=== PATIENT | female | born 1955 | race Caucasian/White ===

== ENCOUNTER → 2016-10-25 13:01 | Outpatient (CLI) | payer MEDICARE ==
[2016-02-11 12:45] VITALS: BMI 46.3
[~2016-10-25 13:01] MED LIST: ACETAMINOPHEN500 M1 PO; ADVAIR HFA [SP]12 GM INH; AMBIEN10 MG PO; ANTIBIOTIC; ATIVAN0.5 MG PO; BOUDREAUXS113 GM TP; BRILINTA90 MG PO; CARAFATE1 G/10 ML PO; CLEOCIN HCL300 MG PO; COMBIVENT INH14.7 GM INH; COMBIVENT RESPIM4 GM INH; COUMADIN5 MG PO; DEPADE50 MG PO; DIFLUCAN100 MG PO; DILAUDID 012 MG/30 M IV; DILAUDID4 MG PO; DOLOPHINE HCL10 MG PO; DULCOLAX10 MG/SUPP RC; ELIQUIS5 MG PO; JUVEN PO; LEXAPRO10 MG PO; METHADOSE10 MG; MICRO-K10 MEQ PO; MIRALAX17 GM PO; NARCAN INJ0.4 MG/ML IV; NEURONTIN 300300 MG PO; NORCO 10/325 TA1 TA1 PO; NYSTATIN60 GM TP; ONDANSETRON4 MG/2 M3 IV; OXYCODONE HCL5 MG PO; OXYCONTIN10 MG PO; OXYCONTIN30 MG PO; PERCOCET 10/3251 TA1 PO; PROTEIN LIQUID30 ML PO; PROTONIX I40 MG/VIAL PO; ROXICODONE5 MG PO; SALINE FLUSH10 ML IJ; SENOKOT-S TABLE1 TAB PO; SODIUM CL 0.41000 ML IV; SOMA350 MG PO; SYMBICORT 16010.2 GM INH; SYMBICORT 80-10.2 GM INH; TEFLARO600 MG IV; TORADOL30 MG/ML IM; XARELTO20 MG PO; ZANAFLEX6 MG PO; [UNRECOGNIZED DRUG - OTHER] PO
== END | disposition home or self-care (01) ==
LOC: D.US 10-18 13:00
DX: I82.91 Chronic embolism and thrombosis of unspecified vein (principal); R60.0 Localized edema

== ENCOUNTER 2017-02-01 10:49 | Outpatient (CLI) | payer MEDICARE ==
[~2017-02-01] VITALS: Ht 170.2 cm; Wt 131.4 kg
--- NOTE | ~2017-02-01 | OP ---
PATIENT NAME: NIKA GUZMAN MEDICAL RECORD: [id number] :55 LOCATION:D.CAT ADMISSION DATE: SURGEON: ERICKA OROPEZA MD DATE OF OPERATION: 02/01/2017 PROCEDURES: Left heart catheterization, selective coronary angiography, right radial approach. CATHETERS: A 5-Palau[place] sheath, [place] catheter. The procedure was well tolerated and the patient was returned to the ravi. Sheath removed and TR band was placed. FINDINGS: Left ventriculography in 30-degree CASTILLO view: Normal wall motion, normal systolic function. CORONARY ANATOMY: LEFT MAIN: The left main is free of disease. LAD: Free of disease, the area of previous stenting has no more than 20% restenosis. CIRCUMFLEX: Anomalous circ, large vessel, free of disease. RIGHT CORONARY ARTERY: Part of a co-dominant right system and is free of disease. IMPRESSION: Minimal in-stent restenosis. No evidence of progression of [place] disease, noncardiac cause of symptomology. TRANSINT:[id number] Voice Confirmation ID: [id number] DOCUMENT ID: [id number] ERICKA OROPEZA MD CC: [id number] DICTATION DATE: 02/01/17 1418 PACKER INSPECTOR: 02/02/17 0010 DEP CLI 02/01/17 [facility] [address] [id number]
--- NOTE | ~2017-02-01 | HEMODYNAMI ---
PATIENT:NIKA GUZMAN MEDICAL RECORD: [id number] : 55 LOCATION:[facility] ADMISSION DATE: 02/01/17 Generatedon:02/01/201714:07 Patient name: NIKA GUZMAN Patient #: [id number] SSN: : Date of study: 02/01/2017 Page: Of Hemodynamic Procedure Report Patient Data Patient Demographics Procedure consent was obtained First Name: NIKA Gender: Female Last Name: MEGAN : 1955 [facility] Initial: VINAY Age: 61 year(s) Patient #: [id number] Race: Additional ID: [id number] Contact details [address]: [address] [place] [address] State: [place] City: [place] Zip code: [address] Past Medical History Allergies Allergen Reaction Date Comments Reported Penicillins 06/04/2015 Other allergy 02/01/2017 n Admission Admission Data Admission Date: 02/01/2017 Admission Time: 10:49 Lab Results Lab Result Date: 02/01/2017 Lab Result Time: 11:20 Biochemistry Name Units Result Min Max BUN mg/dl 11 --(-*--)-- 7 18 Creatinine mg/dl 0.7 --(*---)-- 0.6 1.3 CBC Name Units Result Min Max Hematocrit % 41.8 -*(----)-- 42 54 Hemoglobin g/dl 13.3 -*(----)-- 13.5 17.5 Procedure Procedure Types Cath Procedure Diagnostic Procedure LHC LHC w/Coronaries Miscellaneous Procedures Moderate Sedation up to 30 minutes Procedure Description Procedure Date Procedure Date: 02/01/2017 Procedure Start Time: 13:47 Procedure End Time: 14:04 Procedure Staff Name Function Jesus Sorensen MD Performing Physician Isabelle Mendez RT Scrub Rancho Cuevas RN Nurse Andrea Tony RT Monitor Procedure Data Cath Procedure Fluoroscopy Diagnostic fluoroscopy Total fluoroscopy Time: 4.9 time: 4.9 min min Diagnostic fluoroscopy Total fluoroscopy dose: dose: 431.45 mGy 431.45 mGy Contrast Material Contrast Material Type Amount (ml) Isovue 300 89 Entry Location Entry Primary Successful Side Size Upsize Upsize Entry Closure Mendez ccessful Closure Location (Fr) 1 (Fr) 2 (Fr) Remarks Device Remarks Radial Right 6 Fr Mechanical artery Short Compression Estimated blood loss: 5 ml Diagnostic catheters Device Type Used For End Catheter Placement Medtronic Dexterity 5Fr Procedure TRAP 4.0 catheter (NO CHARGE) Medtronic Dexterity 5Fr Procedure TRAP 4.5 catheter (NO CHARGE) Procedure Complications No complications Procedure Medications Medication Administration Route Dosage Oxygen NC 2 l/min Heparin Flush Bag added to field 2 bags (1000units/500ml NS) 0.9% NaCl I.V. 100 ml/hr Radial Cocktail added to field 1 syringe (Verapomil 2mg/Nitro 400mcg/Heparin 1500units) Fentanyl I.V. 100 mcg Versed I.V. 2 mg Fentanyl I.V. 100 mcg Versed I.V. 2 mg Radial Cocktail I.A. 1 syringe (Verapomil 2mg/Nitro 400mcg/Heparin 1500units) Fentanyl I.V. 100 mcg Versed I.V. 2 mg Hemodynamics Rest HGB: 13.3 (g/dl) Heart Rate: 68 (bpm) Pressure Samples Time Site Value (mmHg) Purpose Heart Use Rate(bpm) 13:56 LV 112/39,36 Snapshot 87 13:57 LV 108/36,33 Snapshot 85 Gradients Valve Time Site Site Mean SEP/DFP Peak To Heart Use 1 2 (mmHg) (sec/min) Peak Rate (mmHg) (bpm) Aortic 13:57 LV AO 64 Snapshots Pre Cath Intra NCS Post Cath Vital Signs Time Heart Resp SPO2 NIBP (mmHg) Rhythm Pain Sedation Rate (ipm) (%) Status Level (bpm) 13:34:06 66 18 97 133/82(99) NSR 0 (11) 10(A) , No pain 13:38:37 70 18 100 129/81(96) NSR 0 (11) 10(A) , No pain 13:43:07 66 19 97 127/72(99) NSR 0 (11) 10(A) , No pain 13:47:33 67 18 95 122/79(104) NSR 0 (11) 10(A) , No pain 13:52:02 69 17 96 121/70(91) NSR 0 (11) 9(A) , No pain 13:56:14 50 19 95 126/95(114) NSR 0 (11) 9(A) , No pain 14:00:44 67 20 94 117/69(92) NSR 0 (11) 9(A) , No pain 14:05:29 64 18 95 122/71(99) NSR 0 (11) 9(A) , No pain Medications Time Medication Route Dose Verified Delivered Reason Notes Effectiveness by by 13:34:45 Oxygen NC 2 l/min Rancho Vickers Per Mason Cuevas RN physician RN 13:34:53 Heparin Flush added 2 bags Rancho Vickers used for Bag to Mason Cuevas RN procedure (1000units/500ml field STRATTON NS) 13:35:05 0.9% NaCl I.V. 100 [place] Per ml/hr Mason Cuevas RN physician RN 13:35:14 Radial Cocktail added 1 Rancho Vickers used for (Verapomil to syringe Mason Cuevas RN procedure 2mg/Nitro field STRATTON 400mcg/Heparin 1500units) 13:46:36 Fentanyl I.V. 100 mcg Rancho Vickers for sedation Mason Cuevas RN RN 13:46:43 Versed I.V. 2 mg Rancho Vickers for sedation Mason Cuevas RN RN 13:49:45 Fentanyl I.V. 100 mcg Rancho [place]ty for sedation Mason Cuevas RN RN 13:49:57 Versed I.V. 2 mg Rancho Vickers for sedation Mason Cuevas RN RN 13:50:13 Radial Cocktail I.A. 1 Rancho Lee for (Verapomil syringe Mason Chapa 2mg/Nitro CHAYITO MORRIS 400mcg/Heparin 1500units) 13:51:38 Fentanyl I.V. 100 mcg Rancho Lee for sedation Mason Sorensen RN, MD 13:51:45 Versed I.V. 2 mg Rancho Graciaory for sedation Mason Sorensen RN, MD Procedure Log Time Note 13:20:19 Rancho Cuevas RN sent for patient. Start room use. 13:20:19 Time tracking: Regular hours 13:20:23 Plan of Care:Hemodynamics will remain stable., Cardiac rhythm will remain stable., Comfort level will be maintained., Respiratory function will remain adequate., Patient/ family verbilizes understanding of procedure., Procedure tolerated without complication., Recovers from procedure without complications.. 13:32:38 Vital chart was started 13:34:45 Oxygen 2 l/min NC was administered by Rancho Cuevas RN; Per physician; 13:34:53 Heparin Flush Bag (1000units/500ml NS) 2 bags added to field was administered by Rancho Cuevas RN; used for procedure; 13:35:05 0.9% NaCl 100 ml/hr I.V. was administered by Rancho Cuevas RN; Per physician; 13:35:14 Radial Cocktail (Verapomil 2mg/Nitro 400mcg/Heparin 1500units) 1 syringe added to field was administered by Rancho Cuevas RN; used for procedure; 13:40:20 Patient received from Pre/Post Procedure Room to CCL 3 Alert and oriented. Tansferred to table in Supine position. 13:40:21 Warm blankets applied, and maria del rosario hugger turned on for patient comfort. 13:40:23 Correct patient and procedure confirmed by team. 13:40:25 Signed procedure consent form obtained from patient. 13:40:44 Baseline sample Acquired. 13:40:48 Rhythm: sinus rhythm 13:40:49 Full Disclosure recording started 13:41:13 H&P Date Dictated: 01/12/2017 Within 30 days and on chart., H&P Addendum completed by physician on day of procedure. (MUST COMPLETE FOR ALL OUTPATIENTS). 13:41:14 Pre-procedure instructions explained to patient. 13:41:15 Pre-op teaching completed and patient verbalized understanding. 13:41:19 Family in waiting room. 13:41:20 Patient NPO since Midnight. 13:41:33 Patient allergic to Other allergypcn 13:41:36 Is the patient allergic to Iodine/contrast media? No. 13:41:38 Is patient on blood thinner?Yes 13:42:11 Previous problem with sedation/anesthesia? No ? 13:42:28 Snore? Yes 13:42:29 Sleep apnea? Yes 13:42:30 Deviated septum? No 13:42:31 Opens mouth fully? Yes 13:42:31 Sticks out tongue? Yes 13:42:35 Airway obstruction? Yes copd 13:42:37 Dentures? No ? 13:42:41 Modified Gaudencio's test Radial < 7 seconds 13:42:43 Patient pain scale 0/10 ?. 13:42:49 IV patent on arrival in left wrist with 0.9% NaCl at [facility]. 13:45:12 Lab Result : Creatinine 0.7 mg/dl 13:45:12 Lab Result : BUN 11 mg/dl 13:45:12 Lab Result : Hemoglobin 13.3 g/dl 13:45:12 Lab Result : Hematocrit 41.8 % 13:45:14 Lab results completed and on chart. 13:45:18 Right Radial & Right Groin area was prepped with chlora-prep and draped in sterile fashion 13:45:19 Alarms reviewed by R. N. 13:45:19 Sharps counted by scrub and verified by R.N. 13:45:22 Use device set Radial Dx 13:45:23 MBrace Wrist Support opened to sterile field. 13:45:24 Tegaderm 4 x 4 opened to sterile field. 13:45:26 Acist Hand Control opened to sterile field. 13:45:26 Acist Manifold opened to sterile field. 13:45:27 Acist Syringe opened to sterile field. 13:45:28 Medline Cath Pack opened to sterile field. 13:45:28 Bag Decanter opened to sterile field. 13:45:29 Terumo 6Fr Slender Glidesheath opened to sterile field. 13:45:29 St Bret 260cm J .035 wire opened to sterile field. 13:45:38 Physician arrived 13:45:38 --------ALL STOP TIME OUT------ 13:45:38 Final Timeout: patient, procedure, and site verified with staff and physician. All members of the team are in agreement. 13:45:40 Right Radial & Right Groin site verified by team. 13:45:42 Physical assessment completed. ASA score P 2 - A patient with mild systemic disease as per Jesus Sorensen MD. 13:45:45 Sedation plan: IV Moderate Sedation Versed, Fentanyl 13:46:36 Fentanyl 100 mcg I.V. was administered by Rancho Cuevas RN; for sedation; 13:46:43 Versed 2 mg I.V. was administered by Rancho Cuevas RN; for sedation; 13:47:37 Procedure started. 13:47:42 Local anesthetic to right radial artery with Lidocaine 2% by Jesus Sorensen MD.INITIAL ACCESS ONLY 13:47:43 A 6 Fr Short sheath was inserted into the Right Radial artery 13:48:56 Zero performed for pressure channel P1 13:49:45 Fentanyl 100 mcg I.V. was administered by Rancho Cuevas RN; for sedation; 13:49:57 Versed 2 mg I.V. was administered by Rancho Cuevas RN; for sedation; 13:50:13 Radial Cocktail (Verapomil 2mg/Nitro 400mcg/Heparin 1500units) 1 syringe I.A. was administered by Jesus Sorensen MD; for vasodilation; 13:50:20 A Medtronic Dexterity 5Fr TRAP 4.0 catheter (NO CHARGE) was advanced over the wire and used for Procedure. 13:51:27 LCA angiography performed. 13:51:38 Fentanyl 100 mcg I.V. was administered by Jesus Sorensen MD; for sedation; 13:51:45 Versed 2 mg I.V. was administered by Jesus Sorensen MD; for sedation; 13:53:25 Catheter removed. 13:53:43 Catheter exchanged over wire. 13:54:19 A Medtronic Dexterity 5Fr TRAP 4.5 catheter (NO CHARGE) was advanced over the wire and used for Procedure. 13:55:22 LCA angiography performed. 13:57:19 LV gram done using CASTILLO 13:57:23 Injector settings: Ml/sec: 5, Volume: 15, 13:57:40 EF : 50 % 13:58:30 Catheter removed. 13:59:06 Medtronic Launcher 6Fr HS I guide catheter opened to sterile field. 13:59:23 6 Fr HSI guide catheter was inserted over the wire 14:00:08 RCA angiography performed. 14:00:59 Terumo TR Band Large opened to sterile field. 14:01:05 Catheter removed. 14:01:33 Sheath removed intact; hemostasis achieved with Mechanical Compression to the Right Radial artery. 14:02:11 Procedure ended.(Physican Out) 14:02:33 Fluoroscopy time 04.90 minutes. 14:02:40 Fluoroscopy dose: 431.45 mGy 14:02:40 Flurop Dose total: 431.45 14:02:44 Contrast amount:Isovue 300 89ml. 14:02:45 Sharps counted by scrub and verified by R.N. 14:02:48 TR band inflated with 12cc of air. 14:02:49 Insertion/operative site no bleeding no hematoma. 14:02:56 Post Procedure Pulses reassessed and unchanged 14:02:58 Post-procedure physical assessment completed. ASA score P 2 - A patient with mild systemic disease as per Jesus Sorensen MD. 14:03:00 Post procedure rhythm: unchanged. 14:03:04 Estimated blood loss: 5 ml 14:03:06 Post procedure instruction explained to patient.Patient verbalizes understanding. 14:03:06 Patient needs reinforcement of post procedure teaching. 14:03:36 Procedure type changed to Cath procedure, Diagnostic procedure, LHC, LHC w/Coronaries, Miscellaneous Procedures, Moderate Sedation up to 30 minutes 14:03:52 Procedure and supply charges have been captured, reviewed, submitted and are correct. 14:03:54 Procedure Complication : No complications 14:03:56 Vital chart was stopped 14:03:56 See physician's report for complete and final results. 14:03:58 Report given to Pre/Post Procedure Room. 14:04:00 Patient transfered to Pre/Post Procedure Room with Stretcher. 14:04:01 Procedure ended. 14:04:01 Full Disclosure recording stopped 14:04:11 End room use (Document Last) Device Usage Item Name Manufacture Quantity Catalog Hospital Part Current Minimal Lot# / Number Charge Number Stock Stock Serial# Code MBrace [facility] 1 140-0250-00 [id number] 53047 143722 5 Wrist Vascular Support Dynamics Tegaderm 4 3M 1 [id number] 666946 388071 5 x 4 Acist Hand Acist 1 91176 556635 189216 841685 5 Control Medical Systems Inc Acist Acist 1 14747 987528 548585 148091 5 Manifold Medical Systems Inc Acist Acist 1 02367 588923 207275 462955 20 Syringe Medical Systems Inc Medline Cardinal 1 [id number] 152192 83271 397938 5 Cath Pack Health Bag Microtek 1 2001S 069436 47369 166801 5 Decanter Medical Inc. Terumo 6Fr Terumo 1 [id number] 728300 910530 930627 [address] St Bret 1 429165 542217 273403 716168 30 260cm J .035 wire Medtronic Medtronic 1 [id number] 939351 131260 5 Dexterity 5Fr TRAP 4.0 catheter (NO CHARGE) Medtronic Medtronic 1 [id number] 149969 770322 5 Dexterity 5Fr TRAP 4.5 catheter (NO CHARGE) Medtronic Medtronic 1 [id number] 079806 68380 905659 1 Launcher 6Fr HS I guide catheter Terumo TR Terumo 1 [id number] 871892 686748 431561 40 Band Large Signature Audit Vidalia Stage Time Signature Unsigned Intra-Procedure 02/01/2017 Andrea Tony 2:07:22 PM RT(R) Signatures Monitor : Andrea Tony RT Signature : Date : Time : [address] [address]
[2017-02-01] MEDS ORDERED: NITROQUICK0.4 MG SL (11:12)
[2017-02-01] MEDS ORDERED: ISOSORBIDE MONO30 M1 PO (11:13)
[2017-02-01] MEDS ORDERED: COMBIVENT RESPIM4 GM INH (11:13)
[2017-02-01] MEDS ORDERED: PEPCID40 MG PO (11:13)
[2017-02-01] MEDS ORDERED: EFFEXOR XR37.5 MG PO (11:14)
[2017-02-01 11:15] VITALS: BP 134/73; Ht 170.2 cm; Wt 131.4 kg
[2017-02-01 11:32] LABS: BASOPHILS 0.6 % (0-2); EOSINOPHILS 2.8 % (0-7); HEMATOCRIT 41.8 % (36.0-48.0); HEMOGLOBIN 13.3 g/dL (12-16); IMMATURE GRANULOCYTES 0.3 % (0-5); LYMPHOCYTES 21.8 % (15-50); MCH 28.2 pg (26.0-34.0); MCHC 31.8 g/dL (31.0-37.0); MCV 88.6 fL (80.0-100.0); MEAN PLATELET VOLUME 10.7 fL (7.4-10.4); MONOCYTES 6.3 % (2-11); NEUTROPHILS 68.2 % (40-80); PLATELET COUNT 160 10x3/uL (130-400); RBC 4.72 10x6/uL (4.00-5.40); RDW 14.7 % (11.5-14.5); WBC 6.9 10x3/uL (4.8-10.8)
[2017-02-01 12:02] LABS: CALC OSMOLALITY 276 mosm/kg (275-300); CALCIUM 8.8 mg/dL (8.5-10.1); CARBON DIOXIDE 31.3 mmol/L (21.0-32.0); CHLORIDE - SERUM 104 mmol/L (98-107); CREATININE - SERUM 0.7 mg/dL (0.6-1.3); GLUCOSE 95 mg/dL (74-106); POTASSIUM - SERUM 4.1 mmol/L (3.5-5.1); SODIUM 139 mmol/L (136-145); UREA NITROGEN 11 mg/dL (7-18); eGFR NON AFRICAN AMERICAN 90 mL/min (90-120)
--- NOTE | 2017-02-01 14:15 | NUR ---
1415 TR BAND TO R/WRIST CDI NO BLEEDING NO HEMATOMA NOTED. VSS WITH CHEST PAIN DENIED. 1430 NO DISTRESS NOTED SANDWICH AND SODA TO BEDSIDE
--- NOTE | 2017-02-01 15:43 | NUR ---
RESTING QUIETLY WITH EYES CLOSED FAMILY AT SIDE VSS WITH CHEST PAIN DENIED
--- NOTE | 2017-02-01 16:05 | NUR ---
PIV REMOVED WITH DRESSING APPLIED 2 CC AIR REMOVED FROM TR BAND WITH NO BLEEDING NO HEMATOMA NOTED PATIENT UP TO GET DRESSED FOR DISCHARGE
--- NOTE | 2017-02-01 16:46 | NUR ---
VERBAL AND WRITTEN DISCHARGE GONE OVER WITH PATIENT AND FAMILY. NO CHANGES IN MEDICATION. TR BAND REMOVED WITH NO BLEEDING NO HEMATOMA NOTED. CHEST PAIN IS DENIED LEFT VIA WC TO PARKING FOR TRANSPORT HOME
== END 2017-02-01 16:48 ==
LOC: D.CATH 10:49
PROVIDERS: Internal Medicine Interventional Cardiology
DX: I25.10 Atherosclerotic heart disease of native coronary artery without angina pectoris (principal); R53.83 Other fatigue; I10 Essential (primary) hypertension; F17.200 Nicotine dependence, unspecified, uncomplicated; Z01.812 Encounter for preprocedural laboratory examination

== ENCOUNTER → 2017-03-29 11:48 | Outpatient (CLI) | payer MEDICARE ==
[2017-02-01 11:15] VITALS: BMI 45.4
[~2017-03-29 11:48] MED LIST changes: +EFFEXOR XR37.5 MG PO; +ISOSORBIDE MONO30 M1 PO; +NITROQUICK0.4 MG SL; +PEPCID40 MG PO
== END | disposition home or self-care (01) ==
LOC: D.US 03-03 13:00
DX: R60.0 Localized edema (principal)

== ENCOUNTER 2017-05-06 16:00 | Inpatient (IN) | payer MEDICARE ==
[~2017-05-06] VITALS: Ht 170.2 cm; Wt 135.2 kg
[2017-05-06 16:59] LABS: APPEARANCE HAZY (CLEAR); COLOR YELLOW (YELLOW); LEUKOCYTE ESTERASE TRACE (NEGATIVE); NITRITE POSITIVE (NEGATIVE); SPECIFIC GRAVITY 1.025 (1.005-1.020)
[2017-05-06 17:00] LABS: BILIRUBIN NEGATIVE (NEGATIVE); GLUCOSE NEGATIVE (NEGATIVE); KETONE NEGATIVE (NEGATIVE); PROTEIN NEGATIVE (NEGATIVE); UROBILINOGEN NORMAL (NORMAL)
[2017-05-06 17:08] LABS: BACTERIA MANY /hpf (NONE SEEN); EPITHELIAL CELLS 0-5 /hpf (0-5); RED CELLS - URINE 0-5 /hpf (0-5)
[2017-05-06 17:26] LABS: BASOPHILS 0.5 % (0-2); EOSINOPHILS 3.6 % (0-7); HEMATOCRIT 42.2 % (36.0-48.0); HEMOGLOBIN 13.4 g/dL (12-16); IMMATURE GRANULOCYTES 0.5 % (0-5); LYMPHOCYTES 28.8 % (15-50); MCH 28.5 pg (26.0-34.0); MCHC 31.8 g/dL (31.0-37.0); MCV 89.8 fL (80.0-100.0); MEAN PLATELET VOLUME 10.6 fL (7.4-10.4); MONOCYTES 6.6 % (2-11); PLATELET COUNT 173 10x3/uL (130-400); RDW 15.2 % (11.5-14.5); WBC 6.4 10x3/uL (4.8-10.8)
[2017-05-06 17:39] LABS: ALBUMIN 3.3 g/dL (3.4-5.0); ALKALINE PHOSPHATASE 113 U/L (46-116); ALT (SGPT) 59 U/L (10-68); BILIRUBIN - TOTAL 0.27 mg/dL (0.2-1.3); CALC OSMOLALITY 277 mosm/kg (275-300); CALCIUM 8.2 mg/dL (8.5-10.1); CARBON DIOXIDE 31.7 mmol/L (21.0-32.0); CHLORIDE - SERUM 104 mmol/L (98-107); CREATININE - SERUM 0.6 mg/dL (0.6-1.3); GLUCOSE 88 mg/dL (74-106); POTASSIUM - SERUM 4.2 mmol/L (3.5-5.1); PROTEIN - SERUM 7.6 g/dL (6.4-8.2); SODIUM 140 mmol/L (136-145); UREA NITROGEN 13 mg/dL (7-18); eGFR NON AFRICAN AMERICAN > 90 mL/min (90-120)
[2017-05-06 17:53] LABS: CKMB 0.5 U/L (0.0-3.6); CREATINE KINASE 51 UL (21-215)
[2017-05-06 17:55] LABS: TROPONIN-I < 0.017 ng/mL (0.000-0.060)
[2017-05-06 20:00] VITALS: BP 141/74
[2017-05-06 23:37] LABS: CKMB 0.5 U/L (0.0-3.6); CREATINE KINASE 55 UL (21-215); TROPONIN-I < 0.017 ng/mL (0.000-0.060)
[2017-05-07] VITALS (7 sets, daily range): BP systolic 101–144; BP diastolic 46–74; BMI 46.8
[2017-05-07 05:53] LABS: CKMB 0.6 U/L (0.0-3.6); CREATINE KINASE 52 UL (21-215); TROPONIN-I < 0.017 ng/mL (0.000-0.060)
--- NOTE | 2017-05-07 07:00 | NUR ---
PT REC'D FROM NATALY VICENTE. RESTING IN BED WITH EYES CLOSED. EASILY AROUSED. AAOX4. RATING CURRENT PAIN IN BACK 07/11. WILL ADMINISTER PAIN MEDS AND REASSESS. REGULAR HEART RATE AND RHYTHM. LUNG SOUNDS CLEAR AND EQUAL BILAT. BOWEL SOUNDS ACTIVE X4 QUADS. PIV TO L HAND FREE OF REDNESS AND SWELLING. WILL DC IV TO R HAND DUE TO THE FACT THAT IT IS ALMOST ALL THE WAY OUT. BILAT LE DISCOLORED, BROWN WITH BLACK/BROWN SPOTS, BUT +2 PEDAL PULSES BILAT ALSO. PT STATES, "THEY'VE BEEN LIKE THAT FOR A WHILE. IT JUST KIND OF HAPPENED OVER TIME." BED LOW, CALL LIGHT IN REACH, DENIES NEEDS. CPOC.
[2017-05-07 07:41] LABS: BASOPHILS 0.5 % (0-2); EOSINOPHILS 2.7 % (0-7); HEMATOCRIT 41.1 % (36.0-48.0); HEMOGLOBIN 13.1 g/dL (12-16); IMMATURE GRANULOCYTES 0.2 % (0-5); LYMPHOCYTES 21.1 % (15-50); MCH 28.7 pg (26.0-34.0); MCHC 31.9 g/dL (31.0-37.0); MCV 89.9 fL (80.0-100.0); MEAN PLATELET VOLUME 11.2 fL (7.4-10.4); MONOCYTES 7.9 % (2-11); NEUTROPHILS 67.6 % (40-80); PLATELET COUNT 149 10x3/uL (130-400); RBC 4.57 10x6/uL (4.00-5.40); RDW 15.2 % (11.5-14.5); WBC 5.6 10x3/uL (4.8-10.8)
[2017-05-07 07:43] LABS: CALC OSMOLALITY 280 mosm/kg (275-300); CALCIUM 8.1 mg/dL (8.5-10.1); CARBON DIOXIDE 30.3 mmol/L (21.0-32.0); CHLORIDE - SERUM 105 mmol/L (98-107); CREATININE - SERUM 0.6 mg/dL (0.6-1.3); GLUCOSE 87 mg/dL (74-106); POTASSIUM - SERUM 4.5 mmol/L (3.5-5.1); SODIUM 142 mmol/L (136-145); eGFR NON AFRICAN AMERICAN > 90 mL/min (90-120)
[2017-05-07 07:44] LABS: UREA NITROGEN 9 mg/dL (7-18)
--- NOTE | 2017-05-07 08:35 | NUR ---
MORNING MEDS PASSED AT THIS TIME. TOLERATED WELL. PRN PAIN MEDICATION ADMINISTERED DUE TO PT COMPLAINTS OF 10/10 BACK PAIN. WILL REASSESS. TELEMETRY APPLIED BY CHETAN CORTEZ. CURRENTLY RUNNING 97 SR PER NINFA, [facility] OUTREACH WORKER. PIV TO R HAND DC'D WITH CATHETER INTACT. PRESSURE AND DRESSING APPLIED. BED LOW, CALL LIGHT IN REACH, DENIES NEEDS. CPOC.
[2017-05-07 11:13] LABS: CKMB 0.7 U/L (0.0-3.6); CREATINE KINASE 61 UL (21-215); TROPONIN-I < 0.017 ng/mL (0.000-0.060)
--- NOTE | 2017-05-07 11:14 | NUR ---
PATIENT IN RIGHT LATERAL POSITION RESTING WITH EYES CLOSED. RESPIRATIONS EVEN AND UNLABORED. SIDE RAILS UP X2. BED IN LOW POSITION. CALL LIGHT IN REACH.
--- NOTE | 2017-05-07 14:46 | NUR ---
PT RESTING IN BED ON R SIDE WITH EYES CLOSED. NO SIGNS OF DISTRESS. RESP EVEN AND UNLABORED. BED LOW, CALL LIGHT IN REACH, CPOC.
--- NOTE | 2017-05-07 19:07 | NUR ---
PT IS SITTING UP IN BED STATED VERY NAUSOUS, CHEKED MAR AND PT ZOFRAN ADMIN 1600 ADVISED PT STILL TOO EARLY, GAVE PT WET TOWEL. BED IN LOW POSITION, CALL LIGHT WITHIN REACH
[2017-05-08] VITALS (7 sets, daily range): BP systolic 112–156; BP diastolic 45–69; Ht 170.2 cm; Wt 135.2 kg
--- NOTE | 2017-05-08 02:13 | NUR ---
PT RESTING IN BED WITH EYES CLOSED AND NO VISIBLE SIGNS OF DISTRESS. BED IN LOWEST POSITION AND CALL LIGHT WITHIN REACH.
[2017-05-08 04:54] LABS: BASOPHILS 0.1 % (0-2); EOSINOPHILS 0.2 % (0-7); HEMOGLOBIN 13.3 g/dL (12-16); IMMATURE GRANULOCYTES 0.4 % (0-5); LYMPHOCYTES 9.6 % (15-50); MCH 28.7 pg (26.0-34.0); MCHC 32.4 g/dL (31.0-37.0); MCV 88.4 fL (80.0-100.0); MEAN PLATELET VOLUME 10.8 fL (7.4-10.4); MONOCYTES 4.9 % (2-11); NEUTROPHILS 84.8 % (40-80); PLATELET COUNT 168 10x3/uL (130-400); RBC 4.64 10x6/uL (4.00-5.40); RDW 14.8 % (11.5-14.5); WBC 8.4 10x3/uL (4.8-10.8)
[2017-05-08 05:09] LABS: CALC OSMOLALITY 276 mosm/kg (275-300); CALCIUM 8.2 mg/dL (8.5-10.1); CARBON DIOXIDE 29.9 mmol/L (21.0-32.0); CHLORIDE - SERUM 105 mmol/L (98-107); CREATININE - SERUM 0.5 mg/dL (0.6-1.3); GLUCOSE 104 mg/dL (74-106); POTASSIUM - SERUM 3.9 mmol/L (3.5-5.1); SODIUM 140 mmol/L (136-145); UREA NITROGEN 8 mg/dL (7-18); eGFR NON AFRICAN AMERICAN > 90 mL/min (90-120)
--- NOTE | 2017-05-08 07:15 | NUR ---
RECIEVED REPORT, CARE OF PT ASSUMED. PT C/O PAIN 10/10 IN LOWER BACK AND R LEG, DILAUDID GIVEN ORDERED. L HAND IV SALINE LOCK, PATENT, DRSG CLEAN DRY AND INTACT. ALLEN MAT IN PLACE. TELEMTRY IN PLACE. NO OTHER COMPLAINTS AT THIS TIME. CALL LIGHT WITHIN REACH.
--- NOTE | 2017-05-08 09:58 | NUR ---
Patient Name: NIKA GUZMAN Admission Status: ER Accout number: [id number] Admission Date: 05-06-2017 : 1955 Admission Diagnosis: Attending: COURT Current LOS: 2 Anticipated DC Date: Planned Disposition: Home Primary Insurance: MEDICARE A & B Discharge Planning Comments: CM met with patient to assess discharge planning needs. Patient lives home alone but has a caregiver who comes 7 days a week. Patient states that Eileen (caregiver) come 3 x a day M-F and then is at her home Sat and Sun 8 hours each day. Patient stated that she had her through a company called [employer]. Patient stated that Eileen will be the one to drive her home. Patient has a bedside commode, shower chair, walker, Home O2. ([facility] ) Patient denies any CM needs at this time. PCP: [facility]: [facility] Eileen (caregiver) [phone] Laundry Operator Wash Room: Iram Hussein * Is the patient Alert and Oriented? Yes 0 * How many steps to enter\exit or inside your home? 3 0 * PCP [facility] 0 * Pharmacy ADIA 0 * Preadmission Environment Home Alone 0 * ADLs Partial Dependent 0 * Partial ADLs (Assistance needed) Bathing Dressing Eating Toileting 0 * Equipment Bedside Commode Oxygen Rolling Walker Shower Chair Walker 0 * List name and contact numbers for known caregivers / representatives who currently or will assist patient after discharge: EILEEN (CAREGIVER) [phone] 0 * Community resources currently utilized Private Duty Care 0 * Please name any agencies selected above. [facility] 0 * Additional services required to return to the preadmission environment? Yes 0 * Can the patient safely return to the preadmission environment? Yes 0 * Has this patient been hospitalized within the prior 30 days at any hospital? No 0 Grand Total: 0
--- NOTE | 2017-05-08 11:57 | NUR ---
PT RESTING WITH EYES SHUT. NO COMPLAINTS AT THIS TIME. CALL LIGHT WITHIN REACH.
--- NOTE | 2017-05-08 17:18 | NUR ---
PT SLEEPING, EASILY AROUSED. PT GRACIA RELIEVED WITH PRN DILAUDID ORDRED. NO COMPLAINTS AT THIS TIME. BED LOW, SIDE RAILS UP X 2. CALL LIGHT WITHIN REACH.
--- NOTE | 2017-05-08 18:51 | NUR ---
PT RESTING IN ROOM WITH EYES CLOSED, SIDE RAILS UP X 2, BED IN LOWEST POSITION, CALL LIGHT WITHIN REACH.
--- NOTE | 2017-05-08 19:15 | NUR ---
PT LYING ON LEFT SIDE IN BED WITH COVERS PULLED OVER HEAD, EVEN RISE AND FALL OF CHEST, BED IN LOW POSITION, CALL LIGHT WITHIN REACH NO SIGNS OF DISTRESS
--- NOTE | 2017-05-09 02:00 | NUR ---
PT IN BED WITH NO DISTRESS. RESPIRATIONS EVEN AND UNLABORED. SIDE RAILS X 2. BED LOW. CALL LIGHT IN REACH.
[2017-05-09 04:00] VITALS: BP 114/63
--- NOTE | 2017-05-09 07:20 | NUR ---
REPORT RECIEVED, ASSUMED CARE OF PT. PT IN RESTROOM AND ASSISTED BACK TO BED AT THIS TIME. NO COMLAINTS VOICED. BED IN LOWEST POSITION, SIDE RAILS UP X 2, CALL LIGHT WITHIN REACH.
--- NOTE | 2017-05-09 09:45 | NUR ---
PT LYING IN BED,WITHOUT DISTRESS.DENIES NEEDSAT PRESENT.CALL LIGHT IN REACH
[2017-05-09 11:14] LABS: BASOPHILS 0.1 % (0-2); EOSINOPHILS 0.5 % (0-7); HEMATOCRIT 43.8 % (36.0-48.0); IMMATURE GRANULOCYTES 0.5 % (0-5); LYMPHOCYTES 15.6 % (15-50); MCH 28.5 pg (26.0-34.0); MEAN PLATELET VOLUME 10.6 fL (7.4-10.4); MONOCYTES 5.9 % (2-11); NEUTROPHILS 77.4 % (40-80); RBC 4.92 10x6/uL (4.00-5.40); RDW 14.8 % (11.5-14.5); WBC 8.5 10x3/uL (4.8-10.8)
[2017-05-09 11:20] LABS: PLATELET COUNT 209 10x3/uL (130-400)
[2017-05-09 11:29] LABS: ALBUMIN 3.2 g/dL (3.4-5.0); ALKALINE PHOSPHATASE 100 U/L (46-116); ALT (SGPT) 37 U/L (10-68); BILIRUBIN - TOTAL 0.27 mg/dL (0.2-1.3); CALC OSMOLALITY 276 mosm/kg (275-300); CALCIUM 8.2 mg/dL (8.5-10.1); CARBON DIOXIDE 30.3 mmol/L (21.0-32.0); CHLORIDE - SERUM 104 mmol/L (98-107); GLUCOSE 100 mg/dL (74-106); POTASSIUM - SERUM 3.8 mmol/L (3.5-5.1); PROTEIN - SERUM 7.6 g/dL (6.4-8.2); SODIUM 139 mmol/L (136-145); UREA NITROGEN 9 mg/dL (7-18); eGFR NON AFRICAN AMERICAN 90 mL/min (90-120)
[2017-05-09 11:31] LABS: CREATININE - SERUM 0.7 mg/dL (0.6-1.3)
--- NOTE | 2017-05-09 13:30 | NUR ---
PT RESTING IN ROOM, C/O NAUSEA, ADVISED PT SHE IS NOT DUE FOR HER ZOFRAN, BUT WILL GIVE IT TO HER WHEN ABLE. COOL, WET WASHCLOTH GIVEN TO USE IF NEEDED. NO OTHER COMPLAINTS. BED LOW, SIDE RAILS UP X 2. CALL LIGHT WITHIN REACH.
[2017-05-09 14:10] VITALS: BP 96/58
--- NOTE | 2017-05-09 17:14 | NUR ---
PT RESTING IN BED, C/O PAIN 05/11, PRN DILAUDID ADMINISTERED ORDERED. NO OTHER COMPLAINTS AT THIS TIME. BED IN LOWEST POSITION, SIDE RAILS UP X 2, CALL LIGHT WITHIN REACH.
[2017-05-09 19:00] VITALS: BP 122/53
--- NOTE | 2017-05-09 20:44 | NUR ---
PT SEEN AND ASSESSED. NO COMPLAINTS OF PAIN OR NAUSEA AT THIS MOMENT. UP TO BATHROOM PER SELF. NON SKID SOCKS ON FOR SAFETY. CALL LIGHT IN REACH
--- NOTE | 2017-05-09 21:45 | NUR ---
LYING IN BED,WITHOUT DISTRESS.CALL LIGHT IN REACH
--- NOTE | 2017-05-10 02:50 | NUR ---
CALLED TO ROOM BY PT.PT IS SITTING IN FLOOR AND SAID SHE SLID OF BED. SHE IS WITHOUT INJURY.VSS 98.0,55,19,97 % ON ROOM AIR. FALL PREVENTION INITIATED.ALLEN MAT PLACED ON BED. YELLOW BAND AND SOCKS.DOOR OPEN TO MONITOR
[2017-05-10 04:00] VITALS: BP 101/44
[2017-05-10 05:40] LABS: BASOPHILS 0.4 % (0-2); EOSINOPHILS 1.3 % (0-7); HEMATOCRIT 41.2 % (36.0-48.0); HEMOGLOBIN 13.3 g/dL (12-16); IMMATURE GRANULOCYTES 0.4 % (0-5); LYMPHOCYTES 19.9 % (15-50); MCH 28.7 pg (26.0-34.0); MCHC 32.3 g/dL (31.0-37.0); MEAN PLATELET VOLUME 10.8 fL (7.4-10.4); MONOCYTES 8.2 % (2-11); NEUTROPHILS 69.8 % (40-80); RBC 4.63 10x6/uL (4.00-5.40); RDW 14.9 % (11.5-14.5)
[2017-05-10 06:00] LABS: PLATELET COUNT 162 10x3/uL (130-400); WBC 5.2 10x3/uL (4.8-10.8)
[2017-05-10 06:02] LABS: ALKALINE PHOSPHATASE 85 U/L (46-116); ALT (SGPT) 36 U/L (10-68); BILIRUBIN - TOTAL 0.33 mg/dL (0.2-1.3); CALC OSMOLALITY 279 mosm/kg (275-300); CHLORIDE - SERUM 103 mmol/L (98-107); CREATININE - SERUM 0.6 mg/dL (0.6-1.3); GLUCOSE 97 mg/dL (74-106); POTASSIUM - SERUM 3.6 mmol/L (3.5-5.1); PROTEIN - SERUM 7.1 g/dL (6.4-8.2); SODIUM 141 mmol/L (136-145); UREA NITROGEN 11 mg/dL (7-18); eGFR NON AFRICAN AMERICAN > 90 mL/min (90-120)
--- NOTE | 2017-05-10 06:11 | NUR ---
CALL TO BRANDON HERNANDEZ APN..RE FALL DURING NIGHT
--- NOTE | 2017-05-10 07:05 | NUR ---
PT REC'D FROM GARY, CHAYITO. RESTING IN BED ON L SIDE. AAOX4. RATING CURRENT PAIN IN BACK 07/11. DILAUDID ALREADY ADMINISTERED BY CHAYITO CASTILLODRAGGER. WILL REASSESS. BED ALARM ON. BOWEL SOUNDS HYPOACTIVE X4 QUADS. BED LOW, CALL LIGHT IN REACH, DENIES NEEDS. CPOC.
[2017-05-10 08:38] VITALS: BP 132/82
--- NOTE | 2017-05-10 10:20 | NUR ---
MORNING MEDS PASSED AT THIS TIME. TOLERATED WELL. FRESH WATER PROVIDED. PRN ANTIEMETIC ADMININSTERED PER PT COMPLAINTS OF NAUSEA. WILL REASSESS. SITTING UP AT BEDSIDE. BED LOW, CALL LIGHT IN REACH, DENIES NEEDS. CPOC.
[2017-05-10] MEDS ORDERED: CHRONULAC30 ML PO (10:21)
[2017-05-10] MEDS ORDERED: FLORAJEN3 CAPS460 MG PO (10:22)
[2017-05-10] MEDS ORDERED: BACTRIM DS TABL1 TAB PO (10:22)
--- NOTE | 2017-05-10 11:27 | NUR ---
Patient discharging today and HH set up as ordered. Patient stated she would like to use [facility], MILENA signed. Referral sent and I spoke with Danielle CM will continue to follow and assist.
--- NOTE | 2017-05-10 11:33 | NUR ---
PT AOX4 RESP EVEN AND NONLABORED PT HERE FOR ALTERED MENTAL STATUS AT THIS TIME IV TO LEFT HAND PATENT AND INTACT AT THIS TIME PT SITTING IN CHAIR AND DENIES NEEDS AT THIS TIME WILL CONTINUE TO MONITOR
--- NOTE | 2017-05-10 13:55 | NUR ---
DISCHARGE INSTRUCTIONS DISCUSSED AT THIS TIME. QUESTIONS AND CONCERNS ANSWERED AT GREAT LENGTH. PIV TO L HAND DC'D WITH CATHETER INTACT. PRESSURE AND DRESSING APPLIED. RN LIAISON REMOVED AND RETURNED TO MONITOR STATION. RIDE HERE. ESCORTED OUT VIA WC BY VOLUNTEER.
== END 2017-05-10 13:57 | disposition home health service (06) | DRG 442 ==
LOC: D.ER 16:00 → D.MS 19:18 → D.SDCHOLD 05-08 15:44 → D.MS 05-08 15:46
PROVIDERS: Family Medicine; ADMIT Family Medicine
DX: K72.90 Hepatic failure, unspecified without coma (principal); N39.0 Urinary tract infection, site not specified; I82.509 Chronic embolism and thrombosis of unspecified deep veins of unspecified lower extremity; Z68.42 Body mass index [BMI] 45.0-49.9, adult; E66.01 Morbid (severe) obesity due to excess calories; B96.20 Unspecified Escherichia coli [E. coli] as the cause of diseases classified elsewhere; M54.9 Dorsalgia, unspecified; G89.29 Other chronic pain; R55 Syncope and collapse

== ENCOUNTER → 2018-01-22 09:02 | Outpatient (CLI) | payer MEDICARE ==
[2017-05-08 12:37] VITALS: BMI 46.7
[~2018-01-22 09:02] MED LIST changes: +BACTRIM DS TABL1 TAB PO; +CHRONULAC30 ML PO; +FLORAJEN3 CAPS460 MG PO
== END | disposition home or self-care (01) ==
LOC: D.US 09:02
DX: Z86.718 Personal history of other venous thrombosis and embolism (principal); I82.91 Chronic embolism and thrombosis of unspecified vein; B40.9 Blastomycosis, unspecified; G89.4 Chronic pain syndrome; Z79.01 Long term (current) use of anticoagulants; R09.89 Other specified symptoms and signs involving the circulatory and respiratory systems

== ENCOUNTER → 2018-05-23 12:39 | Outpatient (CLI) | payer MEDICARE ==
[2017-05-08 12:37] VITALS: BMI 46.7
== END | disposition home or self-care (01) ==
LOC: D.US 05-22 11:00
DX: I82.401 Acute embolism and thrombosis of unspecified deep veins of right lower extremity (principal); I70.311 Atherosclerosis of unspecified type of bypass graft(s) of the extremities with intermittent claudication, right leg

== ENCOUNTER → 2019-02-15 13:09 | Outpatient (CLI) | payer MEDICARE ==
[2017-05-08 12:37] VITALS: BMI 46.7
--- NOTE | 2019-02-18 10:07 | EC ---
PATIENT:NIKA GUZMAN DATE OF SERVICE: 02/15/19 SEX: F MEDICAL RECORD: [id number] DATE OF : 55 LOCATION:D.[facility] AGE OF PATIENT: 63 ADMISSION DATE: 02/15/19 REFERRING PHYSICIAN: INTERPRETING PHYSICIAN: ERICKA OROPEZA MD ECHOCARDIOGRAM REPORT ECHO CHARGES 4 ECHO COMPLETE Date: 02/15/19 CLINICAL DIAGNOSIS: MITRAL REGURG, HX OF CAD HTN, CA/SVT ECHOCARDIOGRAPHIC MEASUREMENTS (adult normal given) AC root (d.<3.7cm) 3.9 cm LV Septum d (<1.2 cm> 1.5 cm Valve Excursion 1.7 cm LV Septum (systole) 1.7 cm Left Atria (s.<4.0cm> 4.0 cm LVPW d(<1.2cm) 1.7 cm RV (d.<2.3cm) 3.7 cm LVPW (sytole) 1.9 cm LV diastole(<5.6CM) 4.3 cm MV E-F(>70mm/sec) cm LV systole 3.4 cm LVOT Diameter 2.2 cm MV exc.(>10mm) 1.5 cm Est.ejection fraction (50-75%) % DOPPLER: LVIT cm/sec A 95.0 cm/sec E 77.0 cm/sec LA cm/sec RVSP 33 mmHg LVOT 118 cm/sec AOP1/2T m/s Asc. Ao 165 cm/sec RVOT 81 cm/sec RA cm/sec PA 116 cm/sec AV Gradient Peak 10.00mmHg AV Mean 5.00 mmHg AV Area 2.6 cm MV Gradient Peak 4.69 mmHg MV Mean 2.37 mmHg MV Area cm COMMENTS: Seasonal Delivery Driver: 2 FITZ MORA Circuit Recorder: 3 Dr. Sorensen TAPE# PACS Pericardial Effusion N DATE OF SERVICE: Adequate 2D, Color Flow, Spectral Doppler, And M-Mode LVH is present. LV internal dimension is normal. Wall motion is normal. EF is greater or equal to 50% to 55%. Aortic valve is tricuspid. No evidence of stenosis by Doppler interrogation. Left atrium is in the upper limits of normal at 4.0 cm. Mitral valve shows no prolapse. Mild MR. Right-sided chambers were normal. Mild TR. ECHOCARDIOGRAM REPORT [id number] NIKA GUZMAN TRANSINT:[id number] Voice Confirmation ID: [id number] DOCUMENT ID: [id number] ERICKA OROPEZA MD at [facility][note 3] CC: [id number] DICTATION DATE: 02/15/191809 EDUCATION FACULTY MEMBER: 02/16/19 0027 DEP CLI 02/15/19 [place] [id number] [place] [id number]
== END | disposition home or self-care (01) ==
LOC: D.HCCARDIO 13:00
PROVIDERS: ATTEND Internal Medicine Interventional Cardiology
DX: I10 Essential (primary) hypertension (principal)

== ENCOUNTER 2019-03-07 05:49 | Outpatient (CLI) | payer MEDICARE ==
[~2019-03-07 05:49] MED LIST changes: +FEMARA2.5 MG PO; +ZOFRAN8 MG PO
[2019-03-07 06:45] LABS: BASOPHILS 0.4 % (0-2); EOSINOPHILS 2.5 % (0-7); HEMATOCRIT 39.3 % (36.0-48.0); HEMOGLOBIN 12.8 g/dL (12-16); IMMATURE GRANULOCYTES 0.3 % (0-5); LYMPHOCYTES 28.9 % (15-50); MCH 27.6 pg (26.0-34.0); MCHC 32.6 g/dL (31.0-37.0); MCV 84.9 fL (80.0-100.0); MEAN PLATELET VOLUME 10.8 fL (7.4-10.4); MONOCYTES 6.4 % (2-11); NEUTROPHILS 61.5 % (40-80); PLATELET COUNT 173 10x3/uL (130-400); RBC 4.63 10x6/uL (4.00-5.40); RDW 15.1 % (11.5-14.5); WBC 7.3 10x3/uL (4.8-10.8)
[2019-03-07 06:51] LABS: CALC OSMOLALITY 280 mosm/kg (275-300); CARBON DIOXIDE 31.6 mmol/L (21.0-32.0); CHLORIDE - SERUM 105 mmol/L (98-107); CREATININE - SERUM 0.6 mg/dL (0.6-1.3); GLUCOSE 88 mg/dL (74-106); POTASSIUM - SERUM 3.7 mmol/L (3.5-5.1); SODIUM 142 mmol/L (136-145); UREA NITROGEN 10 mg/dL (7-18); eGFR NON AFRICAN AMERICAN > 90 mL/min (90-120)
[2019-03-07 07:08] LABS: APTT 30.9 SECONDS (22.8-39.4)
[2019-03-07 07:09] LABS: INR 1.04 (0.85-1.17); PROTIME 13.1 SECONDS (11.6-15.0)
[2019-03-07 07:46] VITALS: BP 138/63; BMI 51.2
--- NOTE | 2019-03-07 15:10 | NUR ---
CARE ASSUMED FROM LOLITA MORALES RN, REPORT RECEIVED
[2019-03-07 16:36] VITALS: BP 143/60
[2019-03-07 17:23] VITALS: BP 143/60; BMI 51.2
--- NOTE | 2019-03-07 19:25 | NUR ---
LYING IN BED WITH EYES CLOSED. DROWSY. AWAKENS PER VERBAL STIMULI. SLIGHTLY SEDATED. FAMILY AT BEDSIDE. RESP SHALLOW, NONLABORED. O2 @ 3.5L/NC. SALINE LOCK NOTED TO RT FOREARM. SOLA WRAP COVERING CHEST DRSG. MAGGY X4 NOTED TO RT AND LT CHEST WITH BLOODY DRAINAGE IN BULB. BULB COMPRESSED. INCONT OF URINE AT THIS TIME. COMPLETE LINEN CHANGE PERFORMED. DENIES PAIN AT THIS TIME. BLE ARE SCALY AND DISCOLORED BROWN. SR ELEVATED X2. CL IN REACH.
--- NOTE | 2019-03-07 20:21 | NUR ---
REQUESTS PAIN MED. MEDICATED WITH MORPHINE FOR C/O PAIN IN CHEST SURGICAL SITE ORDERED. CL IN REACH. FAMILY AT BEDSIDE. CL IN REACH.
[2019-03-07 21:16] VITALS: BP 161/92
[2019-03-08 00:26] VITALS: BP 163/88
--- NOTE | 2019-03-08 01:55 | NUR ---
INCONT OF URINE. PERICARE PERFORMED. MEDICATED WITH MORPHINE FOR C/O PAIN IN CHEST INCISIONS RATING 9. FAMILY AT BEDSIDE. CL IN REACH.
--- NOTE | 2019-03-08 04:30 | NUR ---
INCONT OF URINE AT THIS TIME. PERICARE PERFORMED. CL IN REACH.
[2019-03-08 05:07] LABS: BASOPHILS 0.2 % (0-2); EOSINOPHILS 0.4 % (0-7); HEMATOCRIT 40.6 % (36.0-48.0); HEMOGLOBIN 13.1 g/dL (12-16); IMMATURE GRANULOCYTES 0.1 % (0-5); LYMPHOCYTES 12.6 % (15-50); MCH 27.3 pg (26.0-34.0); MCHC 32.3 g/dL (31.0-37.0); MCV 84.8 fL (80.0-100.0); MEAN PLATELET VOLUME 10.7 fL (7.4-10.4); MONOCYTES 8.7 % (2-11); PLATELET COUNT 175 10x3/uL (130-400); RBC 4.79 10x6/uL (4.00-5.40); RDW 15.1 % (11.5-14.5)
[2019-03-08 05:12] VITALS: BP 141/74
[2019-03-08 05:12] LABS: CALC OSMOLALITY 281 mosm/kg (275-300); CALCIUM 8.1 mg/dL (8.5-10.1); CARBON DIOXIDE 31.6 mmol/L (21.0-32.0); CHLORIDE - SERUM 105 mmol/L (98-107); CREATININE - SERUM 0.6 mg/dL (0.6-1.3); GLUCOSE 109 mg/dL (74-106); POTASSIUM - SERUM 3.3 mmol/L (3.5-5.1); SODIUM 142 mmol/L (136-145); eGFR NON AFRICAN AMERICAN > 90 mL/min (90-120)
[2019-03-08 05:13] LABS: WBC 9.8 10x3/uL (4.8-10.8)
[2019-03-08 05:16] LABS: UREA NITROGEN 6 mg/dL (7-18)
[2019-03-08 08:58] VITALS: BP 146/81
[2019-03-08] MEDS ORDERED: NORCO-10 PO (09:19)
--- NOTE | 2019-03-08 10:09 | OP ---
PATIENT NAME: NIKA GUZMAN MEDICAL RECORD: [id number] :55 LOCATION:D.[facility] ADMISSION DATE: SURGEON: DAVID REYNOLDS MD DATE OF OPERATION: 03/07/2019 PREOPERATIVE DIAGNOSES: 1. Left lobular breast cancer. 2. COPD. 3. Coronary artery disease. 4. DVT. POSTOPERATIVE DIAGNOSES: 1. Left lobular breast cancer. 2. COPD. 3. Coronary artery disease. 4. DVT. PROCEDURES: 1. Bilateral simple mastectomies. 2. Left sentinel lymph node biopsy. SURGEON: David Reynolds MD REPORT OF PROCEDURE: The patient's chest was prepped and draped in sterile fashion. Preoperatively, the patient underwent lymphoscintigraphy and it showed uptake in the left axilla. An ovoid incision was made around the nipple areolar complex on the left side. Electrocautery was used to dissect through the subcutaneous tissues. Once we entered the plane underneath the subcutaneous tissues over the breast, then the breast was excised down to the fascia in all directions. The pectoral muscle was visualized. Any bleeding that was found was treated with electrocautery. Our margins extended from the inferior aspect of the clavicle, medially to the sternum, laterally out to the axilla, and inferiorly down towards the rectus muscles. Once this specimen was removed, it was sent off for permanent. I could feel the mass present in the left upper outer quadrant of the breast. We then inspected the left axilla and were able to find a single sentinel lymph node with a reading of 1700. With reinspection, I was able to check the remainder of the axilla and did not find any evidence of any further radiotracer uptake. This lymph node was resected using Hemoclips and sent off for permanent specimen. We then irrigated out this left section using sterile water and packed the wound with gauze. We then approached the right side. An ovoid incision was made around the breast and electrocautery was used to dissect through the subcutaneous tissues down to the breast tissue. We made flaps superiorly and inferiorly again with our margins being the inferior aspect of the right clavicle, the right superior rectus musculature, the sternum medially, and the axilla laterally. Once we had the breast tissue completely excised, it was taken off of the pectoral musculature and sent off for permanent specimen after it was marked appropriately. We irrigated out the wound with sterile water and any bleeding was treated with electrocautery or 3-0 silk ties. We then replaced 10 flat J-P drains times 2 in each side and sutured these into place using 2-0 nylon. The subcutaneous tissue on the right side was reapproximated with interrupted 3-0 Vicryl and the skin was closed with idania. We approached the left side once again and there was a lot of excess skin tissue that was present, so I reexcised the skin until we had more appropriate amount present. So, a large ovoid incision was performed and this excess skin was taken off and marked for permanent specimen. The subcutaneous tissues were OPERATIVE REPORT [id number] NIKA GUZMAN then reapproximated with interrupted 3-0 Vicryls and the skin was closed with skin staplers. Dressings were applied and an Chris wrap was applied to the chest. COMPLICATIONS: None. CONDITION: Stable. ANESTHESIA: General endotracheal. BLOOD LOSS: 200 mL. TRANSINT:[id number] Voice Confirmation ID: [id number] DOCUMENT ID: [id number] DAVID REYNOLDS MD at 1009 CC: SANTIAGO TREJO MD [id number] DICTATION DATE: 03/07/19 1428 SENIOR MEDICAL TECHNOLOGIST: 03/07/19 1611 [facility] [address] [place] [address]
--- NOTE | 2019-03-08 11:47 | NUR ---
PATIENT WAITING ON PT TO EVALUATE BEFORE DISCHARGE. NO NEEDS AT THIS TIME. FRIEND IN ROOM. CL AND PHONE IN REACH. WCTM
[2019-03-08 13:05] VITALS: BP 141/65
--- NOTE | 2019-03-08 16:06 | NUR ---
IV THERAPY DC'ED WITH TIP INTACT FROM RIGHT FOREARM. PATIENT AND FRIEND MARIELOS VERBALIZED UNDERSTANDING OF DISCHARGE ORDERS. MARIELOS DEMONSTRATED HOW TO MILK AND EMPTY 3/4 OF THE MAGGY DRAINS. WHEELED DOWN TO FOUNTAIN PERSONALLY. NO QUESTIONS AT THIS TIME.
[2019-04-22] MEDS ORDERED: FEMARA2.5 MG PO (15:26)
== END 2019-03-08 16:08 | disposition home or self-care (01) ==
LOC: D.MS 05:49 → D.PAN 05:49 → D.NM 08:00 → D.PAN 15:00 → D.MS 15:57 → D.PAN 03-08 16:08
PROVIDERS: Anesthesiology; ATTEND Surgery
DX: C50.912 Malignant neoplasm of unspecified site of left female breast (principal); J44.9 Chronic obstructive pulmonary disease, unspecified; I25.10 Atherosclerotic heart disease of native coronary artery without angina pectoris; I82.409 Acute embolism and thrombosis of unspecified deep veins of unspecified lower extremity

== ENCOUNTER 2019-04-23 06:49 | Day surgery (SDC) | payer MEDICARE ==
[~2019-04-23] VITALS: Ht 167.6 cm; Wt 137.0 kg
[~2019-04-23 06:49] MED LIST changes: +NORCO-10 PO
[2019-04-23 07:33] LABS: CALC OSMOLALITY 278 mosm/kg (275-300); CALCIUM 8.3 mg/dL (8.5-10.1); CARBON DIOXIDE 31.5 mmol/L (21.0-32.0); CHLORIDE - SERUM 103 mmol/L (98-107); CREATININE - SERUM 0.7 mg/dL (0.6-1.3); GLUCOSE 94 mg/dL (74-106); POTASSIUM - SERUM 3.5 mmol/L (3.5-5.1); SODIUM 141 mmol/L (136-145); UREA NITROGEN 6 mg/dL (7-18); eGFR NON AFRICAN AMERICAN 90 mL/min (90-120)
[2019-04-23 07:36] LABS: APTT 31.1 SECONDS (22.8-39.4); INR 1.03 (0.85-1.17)
[2019-04-23 08:01] LABS: HEMATOCRIT 37.8 % (36.0-48.0); HEMOGLOBIN 12.2 g/dL (12-16); MCH 27.4 pg (26.0-34.0); MCHC 32.3 g/dL (31.0-37.0); MCV 84.8 fL (80.0-100.0); MEAN PLATELET VOLUME 11.2 fL (7.4-10.4); PLATELET COUNT 185 10x3/uL (130-400); RBC 4.46 10x6/uL (4.00-5.40); RDW 15.8 % (11.5-14.5); WBC 10.8 10x3/uL (4.8-10.8)
[2019-04-23 08:15] VITALS: BP 131/78; Ht 167.6 cm; Wt 137.0 kg
[2019-04-23 09:11] LABS: EOSINOPHILS 1 % (0-7); LYMPHOCYTES 18 % (15-50); MONOCYTES 20 % (2-11); NEUTROPHILS 51 % (40-80); PLATELET ESTIMATE NORMAL; TOXIC GRANULATION OCC
[2019-04-23] MEDS ORDERED: HYDROCODON-ACE1 EA10 PO (10:11)
--- NOTE | 2019-04-26 12:15 | OP ---
PATIENT NAME: NIKA GUZMAN MEDICAL RECORD: [id number] :55 LOCATION:D.OPS ADMISSION DATE: SURGEON: DAVID REYNOLDS MD DATE OF OPERATION: 04/23/2019 PREOPERATIVE DIAGNOSES: 1. Breast cancer. 2. Chronic obstructive pulmonary disease. 3. History of deep venous thrombosis. 4. Coronary artery disease. POSTOPERATIVE DIAGNOSES: 1. Breast cancer. 2. Chronic obstructive pulmonary disease. 3. History of deep venous thrombosis. 4. Coronary artery disease. PROCEDURE IN DETAIL: Left subclavian vein PowerPort placement with fluoroscopic interpretation. SURGEON: David Reynolds MD REPORT OF PROCEDURE: The patient's left chest was prepped and draped in sterile fashion. A needle was used to cannulate the left subclavian vein and a guidewire was advanced with ease. Fluoro was used to note that the wire was in good position in the venous system. A skin incision was made on the left superior lateral chest and a subcutaneous pouch was made over the pectoral fascia. A catheter was tunneled between this pouch and the wire exit site. The port was sutured to the pectoral fascia using interrupted 2-0 Prolenes times 2. We kept the catheter with a beveled tip and the dilator trocar device was then placed over the wire. The wire and dilator were removed and the catheter tip was advanced through the trocar and then it was removed. The catheter tip was noted to be resting in good position at the right atrial superior vena caval junction. The catheter aspirated nonpulsatile dark blood and flushed easily with heparinized saline. We reapproximated the subcutaneous tissues with interrupted 3-0 Vicryl and the skin incisions were closed with subcutaneous 5-0 Monocryl. COMPLICATIONS: None. CONDITION: Stable. ANESTHESIA: General endotracheal and local. BLOOD LOSS: Minimal. TRANSINT:[id number] Voice Confirmation ID: [id number] DOCUMENT ID: [id number] OPERATIVE REPORT [id number] MEGANDAVID FERRO MD at 1215 CC: IDANIA MCCRARY MD and SANTIAGO TREJO MD [id number] DICTATION DATE: 04/23/19 1015 BARREL BUILDER: 04/23/19 1034 [facility] [place] 04/23/19 [facility] [address] [place] [address]
== END 2019-04-23 11:45 | disposition home or self-care (01) ==
LOC: D.OPS 06:49
PROVIDERS: Anesthesiology; ATTEND Surgery
DX: C50.919 Malignant neoplasm of unspecified site of unspecified female breast (principal); J44.9 Chronic obstructive pulmonary disease, unspecified; Z86.718 Personal history of other venous thrombosis and embolism; I25.10 Atherosclerotic heart disease of native coronary artery without angina pectoris; Z01.812 Encounter for preprocedural laboratory examination

== ENCOUNTER → 2019-05-27 16:27 | Outpatient (CLI) | payer MEDICARE ==
[2019-04-23 08:15] VITALS: BMI 48.8
[~2019-05-27 16:27] MED LIST changes: +HYDROCODON-ACE1 EA10 PO
== END | disposition home or self-care (01) ==
LOC: D.US 15:00
PROVIDERS: ATTEND Internal Medicine Medical Oncology
DX: C50.812 Malignant neoplasm of overlapping sites of left female breast (principal); M79.662 Pain in left lower leg; R60.0 Localized edema

== ENCOUNTER → 2019-10-01 14:05 | Outpatient (CLI) | payer MEDICARE ==
[2019-04-23 08:15] VITALS: BMI 48.8
== END | disposition home or self-care (01) ==
LOC: D.LABREF 14:05
PROVIDERS: ATTEND Orthopaedic Surgery
DX: M19.012 Primary osteoarthritis, left shoulder (principal)

== ENCOUNTER 2019-12-12 08:00 | Outpatient (CLI) | payer MEDICARE ==
[2019-11-13 11:12] VITALS: Ht 167.6 cm; Wt 122.7 kg
[~2019-12-12] VITALS: Ht 167.6 cm; Wt 122.7 kg
[~2019-12-12 08:00] MED LIST changes: +ALBUTEROL SULF8.5 GM INH; +ANASTROZOLE 1 MG TAB PO; +EFFEXOR XR75 MG PO; +NYSTATIN1 PWD TOPICAL; +PHENERGAN25 M1 PO
[2019-12-12] MEDS ORDERED: DOLOPHINE HCL10 MG PO (11:27)
[2019-12-12 12:06] LABS: BASOPHILS 0.3 % (0-2); EOSINOPHILS 1.5 % (0-7); HEMATOCRIT 45.4 % (36.0-48.0); HEMOGLOBIN 14.5 g/dL (12-16); IMMATURE GRANULOCYTES 0.3 % (0-5); LYMPHOCYTES 16.3 % (15-50); MCHC 31.9 g/dL (31.0-37.0); MCV 87.6 fL (80.0-100.0); MEAN PLATELET VOLUME 10.1 fL (7.4-10.4); MONOCYTES 5.5 % (2-11); NEUTROPHILS 76.1 % (40-80); PLATELET COUNT 206 10x3/uL (130-400); RBC 5.18 10x6/uL (4.00-5.40); RDW 15.7 % (11.5-14.5)
[2019-12-12 12:13] LABS: CALC OSMOLALITY 274 mosm/kg (275-300); CALCIUM 9.2 mg/dL (8.5-10.1); CARBON DIOXIDE 33.5 mmol/L (21.0-32.0); CHLORIDE - SERUM 100 mmol/L (98-107); CREATININE - SERUM 0.8 mg/dL (0.6-1.3); GLUCOSE 100 mg/dL (74-106); SODIUM 137 mmol/L (136-145); UREA NITROGEN 15 mg/dL (7-18); eGFR NON AFRICAN AMERICAN 77 mL/min (90-120)
[2019-12-12 12:30] LABS: APTT 28.9 SECONDS (22.8-39.4); INR 0.94 (0.85-1.17); PROTIME 12.5 SECONDS (11.6-15.0)
[2019-12-12 12:52] LABS: BILIRUBIN NEGATIVE (NEGATIVE); GLUCOSE NEGATIVE (NEGATIVE); KETONE NEGATIVE (NEGATIVE); NITRITE NEGATIVE (NEGATIVE); SPECIFIC GRAVITY 1.025 (1.005-1.020); UROBILINOGEN NORMAL (NORMAL)
[2019-12-12 12:53] LABS: AMORPHOUS SEDIMENT <1+ /lpf (NONE SEEN); BACTERIA FEW /hpf (NEGATIVE); EPITHELIAL CELLS OCC /hpf (0-5); HYALINE CAST RARE /lpf (NONE SEEN); RED CELLS - URINE RARE /hpf (0-5); WHITE CELLS - URINE RARE /hpf (NEGATIVE)
== END 2019-12-12 08:01 | disposition home or self-care (01) ==
LOC: D.PAN 08:00 → D.SDCHOLD 12-16 07:30 → EDSTATUS 12-16 07:30 → D.SDCHOLD 12-16 07:45
PROVIDERS: ATTEND Orthopaedic Surgery
DX: M19.112 Post-traumatic osteoarthritis, left shoulder (principal)

== ENCOUNTER → 2020-02-18 19:55 | Outpatient (CLI) | payer MEDICARE ==
[2019-11-13 11:12] VITALS: BMI 48.0
== END | disposition home or self-care (01) ==
LOC: D.LABREF 19:55
PROVIDERS: ATTEND Orthopaedic Surgery
DX: M19.012 Primary osteoarthritis, left shoulder (principal)

== ENCOUNTER 2020-02-19 16:08 | Inpatient (IN) | payer MEDICARE ==
[~2020-02-19] VITALS: Ht 170.2 cm; Wt 134.1 kg
[2020-03-19 09:39] LABS: BASOPHILS 0.6 % (0-2); EOSINOPHILS 2.9 % (0-7); HEMATOCRIT 42.9 % (36.0-48.0); HEMOGLOBIN 13.3 g/dL (12-16); IMMATURE GRANULOCYTES 0.6 % (0-5); LYMPHOCYTES 20.4 % (15-50); MEAN PLATELET VOLUME 10.4 fL (7.4-10.4); MONOCYTES 6.3 % (2-11); NEUTROPHILS 69.2 % (40-80); PLATELET COUNT 208 10x3/uL (130-400); RBC 4.93 10x6/uL (4.00-5.40); RDW 15.1 % (11.5-14.5); WBC 8.6 10x3/uL (4.8-10.8)
--- NOTE | 2020-03-19 09:39 | NUR ---
PT HAS A POWER PORT THAT WAS PUT IN FOR CHEMO THERAPY. PT HAS COMPLETED THERAPY 10MONS. AGO. PORT HASN'T BEEN ACCESSED SINCE THEN. CALLED DR REYNOLDS'S OFFICE SPOKE WITH RUBY, SHE STATED THAT IF THE PORT CAN BE ACCESSED THEN IT CAN BE USED FOR TOMORROW'S SURGERY.
[2020-03-19 09:45] LABS: BILIRUBIN NEGATIVE (NEGATIVE); GLUCOSE NEGATIVE (NEGATIVE); KETONE NEGATIVE (NEGATIVE); NITRITE NEGATIVE (NEGATIVE); UROBILINOGEN NORMAL (NORMAL)
[2020-03-19 09:46] LABS: APTT 28.1 SECONDS (22.8-39.4); INR 0.91 (0.85-1.17); PROTIME 12.2 SECONDS (11.6-15.0)
[2020-03-19 09:48] LABS: CALC OSMOLALITY 276 mosm/kg (275-300); CALCIUM 9.3 mg/dL (8.5-10.1); CARBON DIOXIDE 34.6 mmol/L (21.0-32.0); CHLORIDE - SERUM 102 mmol/L (98-107); CREATININE - SERUM 0.8 mg/dL (0.6-1.3); GLUCOSE 96 mg/dL (74-106); SODIUM 139 mmol/L (136-145); UREA NITROGEN 11 mg/dL (7-18); eGFR NON AFRICAN AMERICAN 76 mL/min (90-120)
[2020-03-23] VITALS (7 sets, daily range): BP systolic 115–126; BP diastolic 61–74; Ht 170.2 cm; Wt 134.1 kg
--- NOTE | 2020-03-23 18:44 | NUR ---
RECEIVED TO ROOM 1212 VIA BED AT 1730 FROM PACU. ROUSES TO VERBAL STIMULATION. VSS. DRESSING TO LEFT SHOULDER DRY AND INTACT. ICE PACK IN PLACE.
--- NOTE | 2020-03-23 19:21 | NUR ---
PATIENT RESTING IN BED WITH NO S/S OF DISTRESS. VSS. BED IN LOWEST POSITION, CALL LIGHT WITHIN REACH, AND BED ALARM ON. PATIENT ON 4L NC. PATIENT DENIES NEEDS AT THIS TIME. ENCOURAGED THE PATIENT TO CALL IF SHE HAS NEEDS. WILL CONTINUE TO MONITOR.
--- NOTE | 2020-03-23 19:27 | NUR ---
RESTING QUIETLY WITH EYES CLOSED. VSS. NO CHANGES NOTED. DENIES NEEDS.
--- NOTE | 2020-03-23 20:35 | NUR ---
PATIENT VOIDED POSTOP
--- NOTE | 2020-03-23 23:10 | NUR ---
SPOKE WITH VIRGINIE TAYLOR IN REGARDS TO PATIENT'S HOME MEDS. BRANDON REQUESTED I CALL ON-CALL ORTHO TO RESTART ELIQUIS AND THAT SHE WOULD TAKE CARE OF PATIENT'S OTHER HOME MEDICATIONS.
--- NOTE | 2020-03-23 23:15 | NUR ---
SPOKE WITH KATIE HUERTA, RESTARTED PATIENT'S HOME DOSE OF ELIQUIS.
[2020-03-24 00:02] VITALS: BP 127/76
[2020-03-24 03:51] VITALS: BP 136/78
[2020-03-24 07:07] LABS: BASOPHILS 0.1 % (0-2); EOSINOPHILS 0.2 % (0-7); HEMATOCRIT 37.3 % (36.0-48.0); HEMOGLOBIN 11.5 g/dL (12-16); IMMATURE GRANULOCYTES 0.4 % (0-5); LYMPHOCYTES 10.4 % (15-50); MCH 26.7 pg (26.0-34.0); MCHC 30.8 g/dL (31.0-37.0); MCV 86.7 fL (80.0-100.0); MEAN PLATELET VOLUME 10.2 fL (7.4-10.4); MONOCYTES 8.8 % (2-11); NEUTROPHILS 80.1 % (40-80); PLATELET COUNT 180 10x3/uL (130-400); RDW 15.5 % (11.5-14.5); WBC 9.3 10x3/uL (4.8-10.8)
--- NOTE | 2020-03-24 07:15 | NUR ---
UP TO BR WITH ONE PERSON MIN ASSIST. VOIDED CLEAR YELLOW URINE WITHOUT DIFFICULTY. SITTING ON SIDE OF BED TO REST BACK.
[2020-03-24 07:19] LABS: CALC OSMOLALITY 277 mosm/kg (275-300); CALCIUM 8.1 mg/dL (8.5-10.1); CARBON DIOXIDE 30.1 mmol/L (21.0-32.0); CHLORIDE - SERUM 105 mmol/L (98-107); CREATININE - SERUM 0.7 mg/dL (0.6-1.3); GLUCOSE 98 mg/dL (74-106); POTASSIUM - SERUM 4.4 mmol/L (3.5-5.1); SODIUM 140 mmol/L (136-145); UREA NITROGEN 10 mg/dL (7-18); eGFR NON AFRICAN AMERICAN 89 mL/min (90-120)
[2020-03-24 07:29] VITALS: BP 147/85
--- NOTE | 2020-03-24 07:30 | NUR ---
AWAKE AND ALERT. ORIENTED X3. NO C/O AT THIS TIME. LUNGS ARE CLEAR ON RIGHT SIDE AND DIMINISHED ON LEFT. NO COUGH NOTED. SKIN IS INTACT WITHOUT REDNESS EXCEPT INCISION TO LEFT SHOULDER WHICH HAS A DRY INTACT DRESSING IN PLACE. IV TO RIGHT HAND IS PATENT WITHOUT REDNESS AT INSERTION SITE. DENIES NEEDS. BREAKFAST SERVED IN ROOM.
--- NOTE | 2020-03-24 08:38 | NUR ---
ATE MOST OF BREAKFAST. REQUESTED AND GIVEN PERCOCET 10MG PO FOR C/O LEFT SHOULDER PAIN LEVEL 10. WILL MONITOR.
--- NOTE | 2020-03-24 09:00 | NUR ---
REQUESTED AND GIVEN 15MG TORADOL SLOW IVP FOR CONTINUED C/O LEFT SHOULDER PAIN LEVEL 9. WILL MONITOR.
--- NOTE | 2020-03-24 09:41 | NUR ---
DR. HARP HERE. REPORTS PAIN IMPROVED SLIGHTLY. WILL CONTINUE TO MONITOR.
--- NOTE | 2020-03-24 12:25 | NUR ---
UP IN CHAIR AT BEDSIDE. REQUESTED AND GIVEN ONE HYDROCODONE PO FOR C/O PAIN LEVEL 7. WILL MONITOR.
--- NOTE | 2020-03-24 13:46 | NUR ---
ATE ABOUT 25% OF LUNCH. REPORTS PAIN IMPROVED WITH USE OF HYDROCODONE. WILL CONTINUE TO MONITOR.
--- NOTE | 2020-03-24 15:38 | NUR ---
AMBULATED TO BR WITH ONE PERSON MIN ASSIST. VOIDED WITHOUT DIFFICULTY. REQUESTED AND GIVEN 15MG TORADOL SLOW IVP FOR C/O LEFT SHOULDER, NECK PAIN LEVEL 8. WILL MONITOR.
[2020-03-24 16:35] VITALS: BP 119/71
--- NOTE | 2020-03-24 19:35 | NUR ---
ATE ABOUT HALF OF SUPPER. REPORTS GOOD PAIN MANAGEMENT WITH HYDROCODONE. DENIES NEEDS. NO CHANGES NOTED.
[2020-03-24 20:00] VITALS: BP 125/67
--- NOTE | 2020-03-24 20:00 | NUR ---
ASSISTED UP TO BATHROOM AMBULATED WITH WALKER, REPORTS PAIN TO LEFT SHOULDER, BACK TO BED REPORTS NAUSEA ZOFRAN GIVEN FOR NAUSEA, THEN PAIN MEDICATION, SEE SHIFT ASSESSMENT, CALL LIGHT IN REACH
--- NOTE | 2020-03-24 21:30 | MORECARE ---
CASE MANAGEMENT DISCHARGE SUMMARY PATIENT: NIKA GUZMAN UNIT: [id number] ADM DATE: 03/23/20 AGE: 64 : 55 SEX: F ROOM/BED: D.1212 AUTHOR: LATASHA ALVARADO PHYSICIAN: REFERRING PHYSICIAN: DHEERAJ NEWMAN MD DATE OF SERVICE: 03/24/20 Discharge Plan Patient Name: NIKA GUZMAN [facility] [facility] 1955 Planned Disposition: Home Anticipated Discharge Date: Discharge Date: Expected LOS: Initial Reviewer: [email or web address] Initial Review Date: 03/23/2020 Generated: 03/24/20 10:30 pm DCPIA - Discharge Planning Initial Assessment Updated by [email or web address]: Tressa Rodas on 03/24/20 9:29 pm * Is the patient Alert and Oriented? Yes * How many steps to enter\exit or inside your home? * PCP [facility] * [facility] * Preadmission Environment Home Alone * ADLs Independent * Other Equipment HOSP BED, BSC, WALKER, SC, HOME 02 * List name and contact numbers for known caregivers / representatives who currently or will assist patient after discharge: MARIELOS TAVARESCRAFT -[phone] * Verbal permission to speak to the caregivers and representatives has been obtained from the patient. Yes * Community resources currently utilized Home Health * Please name any agencies selected above. [facility] * Additional services required to return to the preadmission environment? No * Can the patient safely return to the preadmission environment? Yes * Has this patient been hospitalized within the prior 30 days at any hospital? No Patient Name: NIKA GUZMAN Page [id number] at 2130 All edits/amendments must be made on the electronic document DICTATION DATE: 03/24/202129 LACING OPERATOR: JOSE ARMANDO 03/24/202129 RPT#: [id number] DC DATE: STATUS: ADM IN [facility] [address] [place] [address] END OF REPORT
--- NOTE | 2020-03-24 21:37 | MORECARE ---
CASE MANAGEMENT DISCHARGE SUMMARY PATIENT: NIKA GUZMAN UNIT: [id number] ADM DATE: 03/23/20 AGE: 64 : 55 SEX: F ROOM/BED: D.1212 AUTHOR: JENNY,DOC PHYSICIAN: REFERRING PHYSICIAN: DHEERAJ NEWMAN MD DATE OF SERVICE: 03/24/20 Discharge Plan Patient Name: NIKA GUZMAN Facility: [facility]:[place] : 1955 Planned Disposition: Home Anticipated Discharge Date: Discharge Date: Expected LOS: Initial Reviewer: [email or web address] Initial Review Date: 03/23/2020 Generated: 03/24/20 10:36 pm Comments DCP- Discharge Planning Updated by [email or web address]: Tressa Rodas on 03/24/20 8:[address] Patient Name: NIKA GUZMAN Admission Status: Elective Accout number: [id number] Admission Date: 03-23-2020 : 1955 Admission Diagnosis:OTH SPECIFIC ARTHROPATHIES, NEC, LEFT SHOULDER Attending: DHEERAJ NEWMAN Current LOS: 1 Anticipated DC Date: Planned Disposition: Home Primary Insurance: MEDICARE A & B Discharge Planning Comments: CM met with patient to complete initial dc planning assessment. CM educated patient on the CM role and verbal consent given by patient to complete assessment. Patient lives at home alone. Patient is independent. At discharge patient plans to return home and feels this is a safe discharge. CM discussed availability of home health, rehab services, and medical equipment. Patient states that she has [facility]. CM concerned for patient's safety at home alone since she uses a walker to ambulate and has just had shoulder surgery. CM will check PT recommendations. Patient denied known discharge needs at this time. CM will continue to follow and will assist as needed with dc plans/needs. Water Resources Technical Officer: Tressa Rodas DCPIA - Discharge Planning Initial Assessment Updated by [email or web address]: Tressa Rodas on 03/24/20 9:29 pm * Is the patient Alert and Oriented? Yes * How many steps to enter\exit or inside your home? * PCP [facility] * [facility] * Preadmission Environment Home Alone * ADLs Independent * Other Equipment HOSP BED, BSC, WALKER, SC, HOME 02 * List name and contact numbers for known caregivers / representatives who currently or will assist patient after discharge: MARIELOS KIM -[phone] * Verbal permission to speak to the caregivers and representatives has been obtained from the patient. Yes * Community resources currently utilized Home Health * Please name any agencies selected above. [facility] * Additional services required to return to the preadmission environment? No * Can the patient safely return to the preadmission environment? Yes * Has this patient been hospitalized within the prior 30 days at any hospital? No Last DP export: 03/24/20 8:31 p Patient Name: NIKA GUZMAN Page [id number] at 2137 All edits/amendments must be made on the electronic document DICTATION DATE: 03/24/202136 RESEARCH GENETICIST: JOSE ARMANDO 03/24/202136 RPT#: [id number] DC DATE: STATUS: ADM IN [facility] [address] [place] [address] END OF REPORT
--- NOTE | 2020-03-24 22:00 | NUR ---
REPORTS PAIN TO SHOULDER BETTER, BUT STILL HAVING NAUSEA, REPOSITIONED IN BED AND SPRITE GIVEN
[2020-03-25 00:10] VITALS: BP 135/80
--- NOTE | 2020-03-25 01:00 | NUR ---
REMAINS AWAKE REPORTS NAUSEA A LITTLE BETTER, BUT STILL THERE, BENADRYL GIVEN PER REQUEST, REPOSITIONED FOR COMFORT IN BED
[2020-03-25 04:30] VITALS: BP 141/84
[2020-03-25 08:02] VITALS: BP 136/61
[2020-03-25 08:24] LABS: CALC OSMOLALITY 277 mosm/kg (275-300); CALCIUM 8.1 mg/dL (8.5-10.1); CHLORIDE - SERUM 106 mmol/L (98-107); CREATININE - SERUM 0.6 mg/dL (0.6-1.3); GLUCOSE 107 mg/dL (74-106); POTASSIUM - SERUM 3.9 mmol/L (3.5-5.1); SODIUM 140 mmol/L (136-145); UREA NITROGEN 10 mg/dL (7-18); eGFR NON AFRICAN AMERICAN > 90 mL/min (90-120)
--- NOTE | 2020-03-25 09:14 | OP ---
PATIENT NAME: NIKA GUZMAN MEDICAL RECORD: [id number] :55 LOCATION:D.M3 D.1212 ADMISSION DATE:03/23/20 SURGEON: DHEERAJ NEWMAN MD DATE OF OPERATION: 03/23/2020 PREOPERATIVE DIAGNOSIS: Chronic rotator cuff arthropathy of the left shoulder. POSTOPERATIVE DIAGNOSIS: Chronic rotator cuff arthropathy of the left shoulder. PROCEDURE: Reverse total shoulder arthroplasty of the left shoulder. SURGEON: Dr. Newman PROFESSOR OF PATHOLOGY: RASHIDA Dumas SECOND PROFESSOR OF PATHOLOGY: KANCHAN Haile INTRAOPERATIVE COMPLICATIONS: None. SUMMARY OF PATHOLOGIC FINDINGS: The patient had findings consistent with chronic osteoarthritis of the glenohumeral joint as well as rotator cuff arthropathy. IMPLANTS USED: Tornier Aequalis reverse total shoulder arthroplasty system. OPERATIVE SUMMARY IN DETAIL: After obtaining the appropriate preoperative orthopedic surgery consent as well as anesthetic consultation, evaluation and clearance, the patient was brought to the operating room and placed on the operating table in a supine position. After general laryngeal mask airway was administered, the patient was placed in beach chair position. All pressure points were well padded. She was held firmly to the operating table using the vacuum pack suction system. Left upper extremity and shoulder were then prepped and draped in routine sterile fashion. The arm was held in the Trimano arm holding device. After appropriate timeout was taken and agreed upon by all, deltopectoral incision was taken down. Cephalic vein was visualized and protected. Deltoid was retracted laterally. The conjoined tendon was gently retracted medially. Subscapularis was taken down and the shoulder was then dislocated into the wound. Osteophytes were taken down. Proximal humeral cut was made using the humeral cutting guide system with Tornier. Serial and sequential broaching were done for a size 4 stem. This was put into place with the appropriate cut protecting guide. The glenoid was then approached. Circumferential labrectomy was followed by central reaming followed by removal of all peripheral bone that might inhibit locking of the glenosphere. Glenosphere was put into place, locked down with a tamp screw tamp screw method. Having completed this, attention was returned to the proximal humerus. Trials were undertaken and it was felt that the size 4 with the size 6 polyethylene component was most appropriate. The final components were assembled on the back table, put into place. Trial was then taken again with the size 6. It was most appropriate again, size 6 [address] was [address] into [address]. Shoulder was reduced, taken through range of motion and found to be stable in all planes. At this point, the wound was copiously irrigated and filled with a gram of vancomycin and a gram of tobramycin. It was then closed with subscapularis back to the lesser tuberosity followed by closure of the cavity with #1 Vicryl, 2-0 Vicryl, all done by RASHIDA Dumas, as well as KANCHAN Haile. Having completed this, sterile dressings were applied. The patient was awakened and OPERATIVE REPORT [id number] NIKA GUZMAN taken to the recovery room in stable condition. All final needle and sponge counts were correct. TRANSINT:[id number] Voice Confirmation ID: [id number] DOCUMENT ID: [id number] PATY MORRIS, DHEERAJ CHOUDHURY at 0914 CC: [id number] DICTATION DATE: 03/24/20 1021 JIRA DEVELOPER: 03/24/20 2130 ADM IN [facility] [address] [place] [address]
[2020-03-25 09:40] LABS: BASOPHILS 0.1 % (0-2); EOSINOPHILS 1.1 % (0-7); HEMATOCRIT 35.6 % (36.0-48.0); HEMOGLOBIN 10.8 g/dL (12-16); IMMATURE GRANULOCYTES 0.5 % (0-5); MCH 26.3 pg (26.0-34.0); MCHC 30.3 g/dL (31.0-37.0); MCV 86.8 fL (80.0-100.0); MEAN PLATELET VOLUME 10.4 fL (7.4-10.4); MONOCYTES 8.4 % (2-11); NEUTROPHILS 80.9 % (40-80); PLATELET COUNT 191 10x3/uL (130-400); RDW 15.7 % (11.5-14.5); WBC 8.1 10x3/uL (4.8-10.8)
--- NOTE | 2020-03-25 10:44 | NUR ---
PT ALERT X 4. BREATH SOUNDS CLEAR BILAT. IV TO RIGHT HAND, PATENT, DRESSING CDI. SLING AND SOLA TO LEFT ARM, CDI. PT REPORTING PAIN OF 9/10, MEDICATED PER ORDERS, WILL CONTINUE TO MONITOR. PT CONTINUES TO BE NAUSEATED. BED LOW, CALL LIGHT IN REACH. NO OTHER NEEDS AT THIS TIME.
--- NOTE | 2020-03-25 11:47 | NUR ---
Rehab Prescreening Consult recieved and the chart has been reviewed. Currently we do not have a female bed available for admission. will discuss with the CM. Amanda Brock RN Clinical Liaison, Rehab
[2020-03-25 12:00] VITALS: BP 116/70
--- NOTE | 2020-03-25 13:14 | NUR ---
PT STILL COMPLAINING OF NAUSEA, BUT NOW HAS A HEADACHE WELL. MEDICATED PER ORDERS, WILL CONTINUE TO MONITOR.
[2020-03-25 15:38] LABS: BILIRUBIN NEGATIVE (NEGATIVE); GLUCOSE NEGATIVE (NEGATIVE); KETONE MODERATE mg/dL (NEGATIVE); NITRITE NEGATIVE (NEGATIVE); UROBILINOGEN NORMAL (NORMAL)
[2020-03-25 16:00] VITALS: BP 130/58
--- NOTE | 2020-03-25 17:35 | NUR ---
OT NOTE: PT COMPLETED SIT TO STAND WITH CGA. PT COMPLETED ADL MOB WITH CGA. PT COMPLETED UE AROM. [phone] THANK YOU,PHILIP MONTEIRO
[2020-03-25 20:00] VITALS: BP 125/62
--- NOTE | 2020-03-25 20:00 | NUR ---
RESTING IN BED, REPORTS FEELING BETTER, SEE SHIFT ASSESSMENT, CALL LIGHT IN REACH
[2020-03-26 04:00] VITALS: BP 145/77
[2020-03-26 07:53] LABS: BASOPHILS 0.2 % (0-2); EOSINOPHILS 4.7 % (0-7); HEMATOCRIT 33.8 % (36.0-48.0); HEMOGLOBIN 10.1 g/dL (12-16); IMMATURE GRANULOCYTES 0.5 % (0-5); LYMPHOCYTES 18.1 % (15-50); MCH 26.2 pg (26.0-34.0); MCHC 29.9 g/dL (31.0-37.0); MCV 87.6 fL (80.0-100.0); MEAN PLATELET VOLUME 10.2 fL (7.4-10.4); MONOCYTES 9.6 % (2-11); NEUTROPHILS 66.9 % (40-80); PLATELET COUNT 160 10x3/uL (130-400); RBC 3.86 10x6/uL (4.00-5.40); RDW 15.8 % (11.5-14.5); WBC 6.4 10x3/uL (4.8-10.8)
[2020-03-26 08:01] LABS: CALC OSMOLALITY 280 mosm/kg (275-300); CALCIUM 7.9 mg/dL (8.5-10.1); CARBON DIOXIDE 32.5 mmol/L (21.0-32.0); CHLORIDE - SERUM 107 mmol/L (98-107); CREATININE - SERUM 0.6 mg/dL (0.6-1.3); GLUCOSE 96 mg/dL (74-106); POTASSIUM - SERUM 3.5 mmol/L (3.5-5.1); SODIUM 142 mmol/L (136-145); UREA NITROGEN 8 mg/dL (7-18); eGFR NON AFRICAN AMERICAN > 90 mL/min (90-120)
[2020-03-26 08:23] VITALS: BP 125/60
--- NOTE | 2020-03-26 09:17 | NUR ---
PT ALERT X 4. BREATH SOUNDS CLEAR BILAT, 4L O2 PER NC. IV TO RIGHT HAND, SALINE LOCKED. PT RESTING, WOKE UP TO TAKE MEDICATIONS PER ORDERS. SLING TO LEFT ARM. PT REPORTING PAIN OF 5/10, MEDICATED PER ORDERS, WILL CONTINUE TO MONITOR. LOWER LEGS DISCOLORED. BED LOW, CALL LIGHT IN REACH. NO OTHER NEEDS AT THIS TIME.
[2020-03-26] MEDS ORDERED: PROTONIX40 MG PO (10:31)
--- NOTE | 2020-03-26 12:02 | MORECARE ---
CASE MANAGEMENT DISCHARGE SUMMARY PATIENT: NIKA GUZMAN UNIT: [id number] ADM DATE: 03/23/20 AGE: 64 : 55 SEX: F ROOM/BED: D.1212 AUTHOR: JENNY,DOC PHYSICIAN: REFERRING PHYSICIAN: DHEERAJ NEWMAN MD DATE OF SERVICE: 03/26/20 Discharge Plan Patient Name: NIKA GUZMAN Facility: [facility]:[place] : 1955 Planned Disposition: Home Anticipated Discharge Date: Discharge Date: Expected LOS: Initial Reviewer: [email or web address] Initial Review Date: 03/23/2020 Generated: 03/26/20 1:02 pm Comments DCP- Discharge Planning Updated by [email or web address]: Tressa Rodas on 03/24/20 8:[address] Patient Name: NIKA GUZMAN Admission Status: Elective Accout number: [id number] Admission Date: 03-23-2020 : 1955 Admission Diagnosis:OTH SPECIFIC ARTHROPATHIES, NEC, LEFT SHOULDER Attending: DHEERAJ NEWMAN Current LOS: 1 Anticipated DC Date: Planned Disposition: Home Primary Insurance: MEDICARE A & B Discharge Planning Comments: CM met with patient to complete initial dc planning assessment. CM educated patient on the CM role and verbal consent given by patient to complete assessment. Patient lives at home alone. Patient is independent. At discharge patient plans to return home and feels this is a safe discharge. CM discussed availability of home health, rehab services, and medical equipment. Patient states that she has [facility]. CM concerned for patient's safety at home alone since she uses a walker to ambulate and has just had shoulder surgery. CM will check PT recommendations. Patient denied known discharge needs at this time. CM will continue to follow and will assist as needed with dc plans/needs. Automotive Title Clerk: Tressa Rodas DCPIA - Discharge Planning Initial Assessment Updated by [email or web address]: Tressa Rodas on 03/24/20 9:29 pm * Is the patient Alert and Oriented? Yes * How many steps to enter\exit or inside your home? * PCP [facility] * [facility] * Preadmission Environment Home Alone * ADLs Independent * Other Equipment HOSP BED, BSC, WALKER, SC, HOME 02 * List name and contact numbers for known caregivers / representatives who currently or will assist patient after discharge: MARIELOS KIM -[phone] * Verbal permission to speak to the caregivers and representatives has been obtained from the patient. Yes * Community resources currently utilized Home Health * Please name any agencies selected above. [facility] * Additional services required to return to the preadmission environment? No * Can the patient safely return to the preadmission environment? Yes * Has this patient been hospitalized within the prior 30 days at any hospital? No External Providers External Provider: [facility] Next Contact Date: Service Request Date: Service Type: Resolution: Reviewer: Comments: Last DP export: 03/24/20 8:37 p Patient Name: NIKA GUZMAN Page [id number] at 1202 All edits/amendments must be made on the electronic document DICTATION DATE: 03/26/20 1202 EQUIPMENT MAINTENANCE SUPERINTENDENT: JOSE ARMANDO 03/26/20 1202 RPT#: [id number] DC DATE: STATUS: ADM IN [facility] [address] [place] [address] END OF REPORT
--- NOTE | 2020-03-26 12:18 | MORECARE ---
CASE MANAGEMENT DISCHARGE SUMMARY PATIENT: NIKA GUZMAN UNIT: [id number] ADM DATE: 03/23/20 AGE: 64 : 55 SEX: F ROOM/BED: D.1212 AUTHOR: JENNY,DOC PHYSICIAN: REFERRING PHYSICIAN: DHEERAJ NEWMAN MD DATE OF SERVICE: 03/26/20 Discharge Plan Patient Name: NIKA GUZMAN Facility: [facility]:[place] : 1955 Planned Disposition: Home Health Service Anticipated Discharge Date: 03/26/20 Discharge Date: Expected LOS: 3 Initial Reviewer: [email or web address] Initial Review Date: 03/23/2020 Generated: 03/26/20 1:18 pm Comments DCP- Discharge Planning Updated by [email or web address]: Tressa Rodas on 03/24/20 8:[address] Patient Name: NIKA GUZMAN Admission Status: Elective Accout number: [id number] Admission Date: 03-23-2020 : 1955 Admission Diagnosis:OTH SPECIFIC ARTHROPATHIES, NEC, LEFT SHOULDER Attending: DHEERAJ NEWMAN Current LOS: 1 Anticipated DC Date: Planned Disposition: Home Primary Insurance: MEDICARE A & B Discharge Planning Comments: CM met with patient to complete initial dc planning assessment. CM educated patient on the CM role and verbal consent given by patient to complete assessment. Patient lives at home alone. Patient is independent. At discharge patient plans to return home and feels this is a safe discharge. CM discussed availability of home health, rehab services, and medical equipment. Patient states that she has [email or web address]. CM concerned for patient's safety at home alone since she uses a walker to ambulate and has just had shoulder surgery. CM will check PT recommendations. Patient denied known discharge needs at this time. CM will continue to follow and will assist as needed with dc plans/needs. Traffic Administrator: Tressa Rodas DCPIA - Discharge Planning Initial Assessment Updated by [email or web address]: Tressa Rodas on 03/24/20 9:29 pm * Is the patient Alert and Oriented? Yes * How many steps to enter\exit or inside your home? * PCP MAYA * [facility] * Preadmission Environment Home Alone * ADLs Independent * Other Equipment HOSP BED, BSC, WALKER, SC, HOME 02 * List name and contact numbers for known caregivers / representatives who currently or will assist patient after discharge: MARIELOS KIM -[phone] * Verbal permission to speak to the caregivers and representatives has been obtained from the patient. Yes * Community resources currently utilized Home Health * Please name any agencies selected above. [facility] * Additional services required to return to the preadmission environment? No * Can the patient safely return to the preadmission environment? Yes * Has this patient been hospitalized within the prior 30 days at any hospital? No Last DP export: 03/26/20 11:02 a Patient Name: NIKA GUZMAN Page [id number] at 1218 All edits/amendments must be made on the electronic document DICTATION DATE: 03/26/208 WOOD HEEL BACK LINER: JOSE ARMANDO 03/26/20 1218 RPT#: [id number] DC DATE: STATUS: ADM IN [facility] [address] [place] [address] END OF REPORT
--- NOTE | 2020-03-26 12:28 | MORECARE ---
CASE MANAGEMENT DISCHARGE SUMMARY PATIENT: NIKA GUZMAN UNIT: [id number] ADM DATE: 03/23/20 AGE: 64 : 55 SEX: F ROOM/BED: D.1212 AUTHOR: JENNY,DOC PHYSICIAN: REFERRING PHYSICIAN: DHEERAJ NEWMAN MD DATE OF SERVICE: 03/26/20 Discharge Plan Patient Name: NIKA GUZMAN Facility: [facility]:[place] : 1955 Planned Disposition: Home Health Service Anticipated Discharge Date: 03/26/20 Discharge Date: Expected LOS: 3 Initial Reviewer: [email or web address] Initial Review Date: 03/23/2020 Generated: 03/26/20 1:28 pm Comments DCP- Discharge Planning Updated by [email or web address]: Charmaine Diamond on 03/26/20 11:[address] CM notified by nursing that Dr. Newman has entered order to DC patient home with home health. CM met with patient to discuss discharge planning needs. Patient states she wants to discharge to home with whichever home health Brenda Begum PT, works at. States home environment is safe. States she understands that therapy recommended IRF d/t high fall risk, but she wants to try being at home with home health first. CM called Brenda Begum PT and confirmed that he works with [facility]. CM informed patient and she signed MILENA accepting [facility] and declined IRF. CM explained and patient signed DC IMM. CM called [facility] [employer], spoke with Da about referral and patient needs to be admitted this weekend d/t high risk for fall (Lives home alone, has arm in brace, and uses walker). Da stated agency will admit Monday. Informed Da that patient wants Brenda Begum for physical therapy. CM aware Brenda if off work next week for vacation, he will start seeing patient when he returns to work, home health will have another therapist see patient in the interim. Da verbalized understanding. Faxed records as requested. Patient informed of planned home health admit Monday. Patient verbalized understanding and satisfaction with discharge plan. States Shania Willis will transport her home from the hospital today. CM informed Little, Manager Electronic, and nurse of discharge plans. CM will continue to follow and assist as needed with DCP needs. DCP- Discharge Planning Updated by [id number]: Tressa Rodas on 03/24/20 8:[address] Patient Name: NIKA GUZMAN Admission Status: Elective Accout number: [id number] Admission Date: 03-23-2020 : 1955 Admission Diagnosis:OTH SPECIFIC ARTHROPATHIES, NEC, LEFT SHOULDER Attending: DHEERAJ NEWMAN Current LOS: 1 Anticipated DC Date: Planned Disposition: Home Primary Insurance: MEDICARE A & B Discharge Planning Comments: CM met with patient to complete initial dc planning assessment. CM educated patient on the CM role and verbal consent given by patient to complete assessment. Patient lives at home alone. Patient is independent. At discharge patient plans to return home and feels this is a safe discharge. CM discussed availability of home health, rehab services, and medical equipment. Patient states that she has [facility]. CM concerned for patient's safety at home alone since she uses a walker to ambulate and has just had shoulder surgery. CM will check PT recommendations. Patient denied known discharge needs at this time. CM will continue to follow and will assist as needed with dc plans/needs. Affirmative Action Specialist: Tressa Rodas DCPIA - Discharge Planning Initial Assessment Updated by [id number]: Tressa Rodas on 03/24/20 9:29 pm * Is the patient Alert and Oriented? Yes * How many steps to enter\exit or inside your home? * PCP MAYA * [facility] * Preadmission Environment Home Alone * ADLs Independent * Other Equipment HOSP BED, BSC, WALKER, SC, HOME 02 * List name and contact numbers for known caregivers / representatives who currently or will assist patient after discharge: SHANIA KIM -[phone] * Verbal permission to speak to the caregivers and representatives has been obtained from the patient. Yes * Community resources currently utilized Home Health * Please name any agencies selected above. [facility] * Additional services required to return to the preadmission environment? No * Can the patient safely return to the preadmission environment? Yes * Has this patient been hospitalized within the prior 30 days at any hospital? No Coverage Notice Reviewer: [id number] Joseph Diamond Notice Issued Date-Time: 03/26/2020 12:00 Notice Type: IM Discharge Notice Notice Delivered To: Patient Relationship to Patient: Self Process Validation Engineer Name: Delivery Method: HAND - Hand Delivered Anna Days: Prior Verbal Notification: Recipient Understood Notice: Yes Recipient Signature: Yes Med Rec Note Co-signed by Attending: Coverage Notice Comment: Reviewer: [id number] - Charmaine Diamond Notice Issued Date-Time: 03/26/2020 12:00 Notice Type: Patient Choice Letter Notice Delivered To: Patient Relationship to Patient: Self Process Validation Engineer Name: Delivery Method: HAND - Hand Delivered Anna Days: Prior Verbal Notification: Recipient Understood Notice: Yes Recipient Signature: Yes Med Rec Note Co-signed by Attending: Coverage Notice Comment: Last DP export: 03/26/20 11:18 a Patient Name: NIKA GUZMAN Page [id number] at 1228 All edits/amendments must be made on the electronic document DICTATION DATE: 03/26/201227 SERVICE COORDINATOR: JOSE ARMANDO 03/26/20 1228 RPT#: [id number] DC DATE: STATUS: ADM IN [facility] [address] [place] [address] END OF REPORT
--- NOTE | 2020-03-26 15:41 | NUR ---
DISCHARGE PAPERWORK SIGNED, ALL QUESTIONS ANSWERED. IV TO RIGHT HAND DC'D, TIP INTACT. DRESSING CHANGED PER PROTOCOL. ESCORTED OUT VIA WHEELCHAIR.
--- NOTE | 2020-03-26 22:30 | MORECARE ---
CASE MANAGEMENT DISCHARGE SUMMARY PATIENT: NIKA GUZMAN UNIT: [id number] ADM DATE: 03/23/20 AGE: 64 : 55 SEX: F ROOM/BED: D.1212 AUTHOR: JENNY,DOC PHYSICIAN: REFERRING PHYSICIAN: DHEERAJ NEWMAN MD DATE OF SERVICE: 03/26/20 Discharge Plan Patient Name: NIKA GUZMAN Facility: [facility]:[place] : 1955 Planned Disposition: Home Health Service Anticipated Discharge Date: 03/26/20 Discharge Date: 03/26/2020 Expected LOS: 3 Initial Reviewer: [email or web address] Initial Review Date: 03/23/2020 Generated: 03/26/20 11:29 pm Comments DCP- Discharge Planning Updated by [email or web address]: Charmaine Diamond on 03/26/20 11:[address] CM notified by nursing that Dr. Newman has entered order to DC patient home with home health. CM met with patient to discuss discharge planning needs. Patient states she wants to discharge to home with whichever home health Brenda Begum PT, works at. States home environment is safe. States she understands that therapy recommended IRF d/t high fall risk, but she wants to try being at home with home health first. CM called Brenda Begum PT and confirmed that he works with [employer]. CM informed patient and she signed MILENA accepting [facility] and declined IRF. CM explained and patient signed DC IMM. CM called [facility], spoke with Da about referral and patient needs to be admitted this weekend d/t high risk for fall (Lives home alone, has arm in brace, and uses walker). Da stated agency will admit Monday. Informed Da that patient wants Brenda Begum for physical therapy. KASSANDRA aware Brenda if off work next week for vacation, he will start seeing patient when he returns to work, home health will have another therapist see patient in the interim. Da verbalized understanding. Faxed records as requested. Patient informed of planned home health admit Monday. Patient verbalized understanding and satisfaction with discharge plan. States Shania Willis will transport her home from the hospital today. CM informed Little, Silviculture Professor, and nurse of discharge plans. CM will continue to follow and assist as needed with DCP needs. DCP- Discharge Planning Updated by [email or web address]: Tressa Rodas on 03/24/20 8:[address] Patient Name: NIKA GUZMAN Admission Status: Elective Accout number: [id number] Admission Date: 03-23-2020 : 1955 Admission Diagnosis:OTH SPECIFIC ARTHROPATHIES, NEC, LEFT SHOULDER Attending: DHEERAJ NEWMAN Current LOS: 1 Anticipated DC Date: Planned Disposition: Home Primary Insurance: MEDICARE A & B Discharge Planning Comments: CM met with patient to complete initial dc planning assessment. CM educated patient on the CM role and verbal consent given by patient to complete assessment. Patient lives at home alone. Patient is independent. At discharge patient plans to return home and feels this is a safe discharge. CM discussed availability of home health, rehab services, and medical equipment. Patient states that she has [facility]. CM concerned for patient's safety at home alone since she uses a walker to ambulate and has just had shoulder surgery. CM will check PT recommendations. Patient denied known discharge needs at this time. CM will continue to follow and will assist as needed with dc plans/needs. Concrete Pipe Making Machine Operator: Tressa Rodas DCPIA - Discharge Planning Initial Assessment Updated by [email or web address]: Tressa Rodas on 03/24/20 9:29 pm * Is the patient Alert and Oriented? Yes * How many steps to enter\exit or inside your home? * PCP [facility]A * [facility] * Preadmission Environment Home Alone * ADLs Independent * Other Equipment HOSP BED, BSC, WALKER, SC, HOME 02 * List name and contact numbers for known caregivers / representatives who currently or will assist patient after discharge: SHANIA KIM -[phone] * Verbal permission to speak to the caregivers and representatives has been obtained from the patient. Yes * Community resources currently utilized Home Health * Please name any agencies selected above. [facility] * Additional services required to return to the preadmission environment? No * Can the patient safely return to the preadmission environment? Yes * Has this patient been hospitalized within the prior 30 days at any hospital? No Coverage Notice Reviewer: [id number] Joseph Diamond Notice Issued Date-Time: 03/26/2020 12:00 Notice Type: IM Discharge Notice Notice Delivered To: Patient Relationship to Patient: Self Bead Flipper Name: Delivery Method: HAND - Hand Delivered Anna Days: Prior Verbal Notification: Recipient Understood Notice: Yes Recipient Signature: Yes Med Rec Note Co-signed by Attending: Coverage Notice Comment: Reviewer: [email or web address] Joseph Diamond Notice Issued Date-Time: 03/26/2020 12:00 Notice Type: Patient Choice Letter Notice Delivered To: Patient Relationship to Patient: Self Bead Flipper Name: Delivery Method: HAND - Hand Delivered Anna Days: Prior Verbal Notification: Recipient Understood Notice: Yes Recipient Signature: Yes Med Rec Note Co-signed by Attending: Coverage Notice Comment: declined IRF. [facility] Last DP export: 03/26/20 11:28 a Patient Name: NIKA GUZMAN Page [id number] at 2230 All edits/amendments must be made on the electronic document DICTATION DATE: 03/26/202228 LAN/WAN ENGINEER: JOSE ARMANDO 03/26/202228 RPT#: [id number] DC DATE:03/26/20 STATUS: DIS IN [facility] [address] [place] [address] END OF REPORT
== END 2020-03-26 15:42 | disposition home health service (06) | DRG 483 ==
LOC: D.SDCHOLD 03-23 11:00 → D.M3 03-23 17:32 → D.WS 03-23 17:32 → D.M3 03-23 18:27
PROVIDERS: Family Medicine; ADMIT Orthopaedic Surgery; ATTEND Orthopaedic Surgery
PROC: 0RRK00Z Replacement of Left Shoulder Joint with Reverse Ball and Socket Synthetic Substitute, Open Approach (ICD-10-PCS; principal; 2020-03-23 13:00)
DX: M12.812 Other specific arthropathies, not elsewhere classified, left shoulder (principal); J96.11 Chronic respiratory failure with hypoxia; I25.10 Atherosclerotic heart disease of native coronary artery without angina pectoris; K21.9 Gastro-esophageal reflux disease without esophagitis; Z85.3 Personal history of malignant neoplasm of breast; G62.9 Polyneuropathy, unspecified